=== PATIENT | female | born 1930 | race Caucasian/White ===

== ENCOUNTER 2018-02-20 06:39 | Inpatient (IN) | payer MEDICARE ==
--- NOTE | 2018-02-20 07:27 | EDM.PDOC ---
ED HPI GENERAL MEDICAL PROBLEM - General Chief Complaint: Respiratory Problem Stated Complaint: short of breath Time Seen by Provider: 02/20/18 07:15 Source of Information: Reports: Patient, Family History Limitations: Reports: No Limitations - History of Present Illness INITIAL COMMENTS - FREE TEXT/NARRATIVE: Was on an [place] and was feeling well. On way home from [place] in the car she did have a sore throat. That progressed to a cough starting on Saturday. This morning she had a fever and the cough was worse and she states that her lungs feel full. Daughter noted that she was congested and cough was much worse during the night. She denies any chest pain but does admit to feeling SOB. Did have pneumonia at Easter time. Onset: Gradual Location: Reports: Chest - Related Data Allergies Allergy/AdvReac Type Severity Reaction Status Date / Time escitalopram [From Lexapro] Allergy Cannot Verified 02/20/18 07:14 Remember vancomycin Allergy Itching Verified 02/20/18 07:14 Home Meds: Home Meds Aspirin 81 mg PO DAILY 09/12/16 [History] Clopidogrel [Plavix] 75 mg PO DAILY 09/12/16 [History] Ferrous Sulfate [Iron] 325 mg PO DAILY 09/12/16 [History] Furosemide [Lasix] 20 mg PO DAILY PRN 09/12/16 [History] Multivitamin [Multivitamins] 1 each PO DAILY 09/12/16 [History] Saxagliptin HCl [Onglyza] 2.5 mg PO BID 09/12/16 [History] Sennosides [Senna] 8.6 mg PO BID 09/12/16 [History] Sertraline [Zoloft] 50 mg PO DAILY 09/12/16 [History] Vit C/E/Zn/Coppr/Lutein/Zeaxan [Preservision Areds 2 Softgel] 1 tab PO BID 09/12 [History] amLODIPine Besylate [Amlodipine Besylate] 10 mg PO DAILY 09/12/16 [History] atorvaSTATin Calcium [Atorvastatin Calcium] 10 mg PO DAILY 09/12/16 [History] hydrALAZINE HCl [Hydralazine HCl] 100 mg PO TID 09/12/16 [History] Albuterol Sulfate [Proair Respiclick] 90 mcg IH Q4H PRN 02/20/18 [History] Donepezil HCl 10 mg PO DAILY 02/20/18 [History] Doxazosin Mesylate [Cardura] 8 mg PO BID 02/20/18 [History] Insulin Detemir [Levemir] 5 unit SQ QPM 02/20/18 [History] Past Medical History HEENT History: Reports: Cataract, Macular Degeneration Cardiovascular History: Reports: Blood Clots/VTE/DVT, High Cholesterol, Hypertension, PVD, Stents Respiratory History: Reports: Pneumonia, Recurrent, SOB Gastrointestinal History: Reports: Chronic Constipation Genitourinary History: Reports: UTI, Recurrent [employer] History: Reports: Musculoskeletal History: Reports: Arthritis, Fracture Neurological History: Reports: Alzheimers Disease Psychiatric History: Reports: Alzheimers Disease, Depression Other Psychiatric History: daughter reports "memory issues" at times Endocrine/Metabolic History: Reports: Diabetes, Type II Hematologic History: Reports: Blood Transfusion(s) Immunologic History: Reports: Other (See Below) Other Immunologic History: recently chemo meds were dc'd Oncologic (Cancer) History: Reports: Colon - Past Surgical History HEENT Surgical History: Reports: Cataract Surgery Cardiovascular Surgical History: Reports: None Respiratory Surgical History: Reports: None GI Surgical History: Reports: Colon, Colonoscopy, Other (See Below) Other GI Surgeries/Procedures: colon cancer Endocrine Surgical History: Reports: None Musculoskeletal Surgical History: Reports: Hip Replacement, Knee Replacement, ORIF Dermatological Surgical History: Reports: Skin Graft Social & Family History - Tobacco Use Smoking Status *Q: Never Smoker ED ROS GENERAL - Review of Systems Review Of Systems: See Below Constitutional: Reports: Fever, Chills, Fatigue HEENT: Reports: No Symptoms Respiratory: Reports: Shortness of Breath, Cough, Sputum Cardiovascular: Denies: Chest Pain, Edema GI/Abdominal: Reports: No Symptoms : Reports: No Symptoms Musculoskeletal: Reports: No Symptoms Skin: Reports: No Symptoms Neurological: Reports: No Symptoms ED EXAM, GENERAL - Physical Exam Exam: See Below Exam Limited By: No Limitations General Appearance: Alert, WD/WN, Mild Distress Ears: Normal External Exam, Normal Canal, Normal TMs Nose: Normal Inspection Throat/Mouth: Normal Inspection, Normal Oropharynx, Normal Voice Head: Atraumatic, Normocephalic Neck: Normal Inspection, Supple, Non-Tender, Full Range of Motion Respiratory/Chest: Rhonchi, Wheezing Cardiovascular: Regular Rate, Rhythm, No Edema GI/Abdominal: Normal Bowel Sounds, Soft, Non-Tender, No Organomegaly Back Exam: Normal Inspection, Full Range of Motion Extremities: Normal Inspection, Normal Range of Motion, Non-Tender, No Pedal Edema, Normal Capillary Refill Neurological: Alert, Oriented Skin Exam: Warm, Dry, Intact Course - Vital Signs Last Recorded V/S: Last Vital Signs Temp 99.8 F 02/20/18 06:40 Pulse 77 02/20/18 06:40 Resp 20 02/20/18 06:40 BP 164/60 H 02/20/18 06:40 Pulse Ox 94 L 02/20/18 07:00 - Orders/Labs/Meds Orders: Active Orders 24 hr Category Date Time Status Oxygen Therapy, ED [RC] ASDIRECTED Care 02/20/18 06:45 Active CXR [Chest 2V] [CR] Stat Exams 02/20/18 06:59 Ordered C-REACTIVE PROTEIN [CHEM] Stat Lab 02/20/18 07:10 Received CBC WITH AUTO DIFF [HEME] Stat Lab 02/20/18 07:10 Received COMPREHENSIVE METABOLIC PN,CMP [CHEM] Stat Lab 02/20/18 07:10 Received CREATINE KINASE,CK [CHEM] Stat Lab 02/20/18 07:10 Received LACTATE DEHYDROGENASE,LDH [CHEM] Stat Lab 02/20/18 07:10 Received TROPONIN I [CHEM] Stat Lab 02/20/18 07:10 Received EKG 12 Lead [EK] Routine Ther 02/20/18 06:59 Ordered - Re-Assessments/Exams Free Text/Narrative Re-Assessment/Exam: 02/20/18 07:35In to discuss with family her CXR shows more of bronchitis at this time rather than pneumonia. Discussed that after she is hydrated that a pneumonia may show up. Due to the hypoxia on admit we will be admitting her for IV antibiotics and fluids with nebulizer treatments. She will be admitted acute to Dr. Cassidy. Case was discussed with Dr. Cassidy and he agrees with the admit. Departure - Departure Time of Disposition: 07:46 Disposition: Admitted As Inpatient 64 Condition: Fair Clinical Impression: Bronchitis, Hypoxia - Discharge Information Additional Instructions: see admit orders - Problem List & Annotations (1) Bronchitis SNOMED Code(s): 73356706 Code(s): J40 - BRONCHITIS, NOT SPECIFIED ACUTE OR CHRONIC Status: Acute Current Visit: Yes (2) Hypoxia SNOMED Code(s): 408537642 Code(s): R09.02 - HYPOXEMIA Status: Acute Priority: High Current Visit : Yes (3) Diabetes mellitus type 2, insulin dependent SNOMED Code(s): 010505426 Code(s): E11.9 - TYPE 2 DIABETES MELLITUS WITHOUT COMPLICATIONS; Z79.4 - SKILLED NURSING (CURRENT) USE OF INSULIN Status: Chronic Priority: Medium Current Visit: Yes - Problem List Review Problem List Initiated/Reviewed/Updated: Yes - My Orders Last 24 Hours: My Active Orders 02/20/18 06:45 Oxygen Therapy, ED [RC] ASDIRECTED 02/20/18 06:59 CXR [Chest 2V] [CR] Stat EKG 12 Lead [EK] Routine 02/20/18 07:10 C-REACTIVE PROTEIN [CHEM] Stat CBC WITH AUTO DIFF [HEME] Stat COMPREHENSIVE METABOLIC PN,CMP [CHEM] Stat CREATINE KINASE,CK [CHEM] Stat LACTATE DEHYDROGENASE,LDH [CHEM] Stat TROPONIN I [CHEM] Stat - Assessment/Plan Admission H&P: Please use this note as an admission H&P Last 24 Hours: My Active Orders 02/20/18 06:45 Oxygen Therapy, ED [RC] ASDIRECTED 02/20/18 06:59 CXR [Chest 2V] [CR] Stat EKG 12 Lead [EK] Routine 02/20/18 07:10 C-REACTIVE PROTEIN [CHEM] Stat CBC WITH AUTO DIFF [HEME] Stat COMPREHENSIVE METABOLIC PN,CMP [CHEM] Stat CREATINE KINASE,CK [CHEM] Stat LACTATE DEHYDROGENASE,LDH [CHEM] Stat TROPONIN I [CHEM] Stat
[2018-02-20 07:29] LABS: CHLORIDE,CL 108 mEq/L (98-106); SODIUM,NA 143 mEq/L (136-145)
[2018-02-20] MEDS ORDERED: Albuterol 8 GM Inhaler INH PRN (08:22)
[2018-02-20] MEDS ORDERED: Furosemide 20 MG Tab PO PRN (08:22)
[2018-02-20] MEDS ORDERED: SERTRALINE 50 MG PO SCH ×2 (08:22→20:00)
[2018-02-20] MEDS ORDERED: Magnesium Hydroxide 400 MG/5 ML Susp 30 ML Cup PO PRN (08:22)
[2018-02-20] MEDS: amLODIPine 10 MG Tab PO SCH (08:44)
[2018-02-20] MEDS: atorvaSTATin 10 MG Tab PO SCH (08:44)
[2018-02-20] MEDS: Clopidogrel 75 MG Tab PO SCH (08:45)
[2018-02-20] MEDS: cefTRIAXone 1 GM Vial IVPUSH SCH (08:45)
[2018-02-20] MEDS: Albuterol/Ipratropium 3.0-0.5 MG/3 ML Neb Soln NEB SCH ×4 (08:45→20:02)
[2018-02-20] MEDS: Aspirin 81 MG Tab.Chew PO SCH (08:45)
[2018-02-20] MEDS: Sodium Chloride 0.9% 1,000 ML IV SCH (09:30)
[2018-02-20] MEDS: Donepezil 5 MG Tab PO SCH (09:44)
[2018-02-20] MEDS: Enoxaparin 30 MG/0.3 ML Syringe SUBCUT SCH (09:44)
[2018-02-20] MEDS: Sennosides 8.6 MG Tab PO SCH ×2 (09:44→20:03)
[2018-02-20] MEDS: Ferrous Sulfate 324 MG Tab.EC PO SCH (09:44)
[2018-02-20] MEDS: Multivitamin Tab PO SCH ×2 (09:44→20:03)
[2018-02-20] MEDS: hydrALAZINE 25 MG Tab PO SCH ×3 (09:44→21:27)
[2018-02-20] MEDS: Doxazosin 2 MG Tab PO SCH ×2 (09:44→21:27)
[2018-02-20] MEDS: Acetaminophen 325 MG Tab PO PRN ×2 (12:23→20:02)
[2018-02-20] MEDS: Ibuprofen 200 MG Tab PO PRN (13:54)
[2018-02-20] MEDS ORDERED: Azithromycin 500 MG in Sodium Chloride 0.9% 250 ML IV SCH (16:30)
[2018-02-20] MEDS: Insulin Detemir 100 Units/ML 3 ML Pen SUBCUT SCH (21:44)
[2018-02-20] MEDS: ONGLYZA 2.5 MG PO SCH (21:45)
[2018-02-21] MEDS: Sodium Chloride 0.9% 1,000 ML IV SCH (06:18)
[2018-02-21] MEDS ORDERED: Albuterol/Ipratropium 3.0-0.5 MG/3 ML Neb Soln NEB PRN (07:06)
[2018-02-21] MEDS: cefTRIAXone 1 GM Vial IVPUSH SCH (07:30)
[2018-02-21] MEDS: Enoxaparin 30 MG/0.3 ML Syringe SUBCUT SCH (07:31)
[2018-02-21] MEDS: amLODIPine 10 MG Tab PO SCH (07:32)
[2018-02-21] MEDS: Albuterol/Ipratropium 3.0-0.5 MG/3 ML Neb Soln NEB SCH ×4 (07:32→19:54)
[2018-02-21] MEDS: Aspirin 81 MG Tab.Chew PO SCH (07:32)
[2018-02-21] MEDS: Doxazosin 2 MG Tab PO SCH ×2 (07:32→19:53)
[2018-02-21] MEDS: atorvaSTATin 10 MG Tab PO SCH (07:32)
[2018-02-21] MEDS: Clopidogrel 75 MG Tab PO SCH (07:32)
[2018-02-21] MEDS: Donepezil 5 MG Tab PO SCH (07:33)
[2018-02-21] MEDS: Sennosides 8.6 MG Tab PO SCH ×2 (07:33→19:52)
[2018-02-21] MEDS: hydrALAZINE 25 MG Tab PO SCH ×3 (07:33→19:53)
[2018-02-21] MEDS: Ferrous Sulfate 324 MG Tab.EC PO SCH (07:33)
[2018-02-21] MEDS: Multivitamin Tab PO SCH ×2 (07:33→19:54)
[2018-02-21] MEDS: ONGLYZA 2.5 MG PO SCH ×2 (07:35→19:54)
--- NOTE | 2018-02-21 08:16 | PCM.PN ---
- General Info Date of Service: 02/21/18 Admission Dx/Problem (Free Text): Bronchitis Hypoxia Type II DM Subjective Update: Krystal is an 87 year old female who was admitted to the hospital yesterday with bronchitis with hypoxia. She had reportedly been on an [employer] cruise and began feeling ill enroute home. She reports the two days prior to admission she began struggling more to breathe. She reports that she feels somewhat better today. She feels like she has more energy and is less short of breath. She reports she has less tightness in her chest and feels more "rattly now." She has a productive cough. She has been afebrile. VSS on 4 L O2 via NC. Functional Status: Reports: Pain Controlled, Tolerating Diet, Ambulating, Urinating. Denies: New Symptoms - Review of Systems General: Reports: Weakness, Fatigue. Denies: Fever, Chills HEENT: Reports: No Symptoms. Denies: Post Nasal Drip, Sinus Congestion, Rhinitis Pulmonary: Reports: Shortness of Breath, Cough, Sputum, Wheezing. Denies: Pleuritic Chest Pain, Hemoptysis Cardiovascular: Reports: Dyspnea on Exertion. Denies: Chest Pain, Palpitations , Orthopnea, Edema, Lightheadedness Gastrointestinal: Reports: No Symptoms. Denies: Abdominal Pain, Constipation, Decreased Appetite, Diarrhea, Nausea, Vomiting Genitourinary: Reports: No Symptoms. Denies: Dysuria, Frequency, Urgency Musculoskeletal: Reports: No Symptoms Skin: Reports: No Symptoms Neurological: Reports: Weakness. Denies: Confusion, Dizziness, Headache, Numbness, Tingling Psychiatric: Reports: No Symptoms - Patient Data Vitals - Most Recent: Last Vital Signs Temp 98.6 F 02/21/18 04:00 Pulse 61 02/21/18 04:00 Resp 20 02/21/18 04:00 BP 112/38 L 02/21/18 07:33 Pulse Ox 86 L 02/21/18 04:00 Weight - Most Recent: 162 lb I&O - Last 24 Hours: Intake & Output 02/20/18 02/21/18 02/21/18 22:59 06:59 14:59 Intake Total 2265 200 Output Total 200 0 Balance 2065 200 Lab Results Last 24 Hours: Laboratory Results - last 24 hr 02/20/18 02/20/18 02/20/18 Range/Units 11:34 16:15 17:25 WBC (5.0-10.0) 10^3/uL RBC (4.00-5.50) 10^6/uL Hgb (12.0-16.0) g/dL Hct (37.0-47.0) % MCV (82.0-94.0) fL MCH (27.0-32.0) pg MCHC (33.0-38.0) g/dL RDW Coeff of Charles (11.0-15.0) % Plt Count (150-400) 10^3/uL MPV fL Sodium (136-145) mEq/L Potassium (3.5-5.0) mEq/L Chloride (98-106) mEq/L Carbon Dioxide (21-32) mmol/L BUN (7-18) mg/dL Creatinine (0.6-1.0) mg/dL Est Cr Clr Drug Dosing mL/min Estimated GFR (MDRD) (>=60) mL/min Glucose (75-99) mg/dL POC Glucose 191 H 196 H (75-105) mg/dl Calcium (8.4-10.1) mg/dL C-Reactive Protein (0.2-0.8) mg/dL NT-Pro-B Natriuret Pep 1487 H (0-1000) pg/mL 02/20/18 02/21/18 02/21/18 Range/Units 20:58 07:00 07:00 WBC 4.7 L (5.0-10.0) 10^3/uL RBC 2.77 L (4.00-5.50) 10^6/uL Hgb 8.4 L (12.0-16.0) g/dL Hct 27.3 L (37.0-47.0) % MCV 98.6 H (82.0-94.0) fL MCH 30.3 (27.0-32.0) pg MCHC 30.8 L (33.0-38.0) g/dL RDW Coeff of Charles 15.7 H (11.0-15.0) % Plt Count 130 L (150-400) 10^3/uL MPV 9.1 fL Sodium 144 (136-145) mEq/L Potassium 3.7 (3.5-5.0) mEq/L Chloride 110 H (98-106) mEq/L Carbon Dioxide 25 (21-32) mmol/L BUN 19 H D (7-18) mg/dL Creatinine 1.5 H (0.6-1.0) mg/dL Est Cr Clr Drug Dosing 21.96 mL/min Estimated GFR (MDRD) 33 L (>=60) mL/min Glucose 105 H (75-99) mg/dL POC Glucose 265 H (75-105) mg/dl Calcium 8.0 L (8.4-10.1) mg/dL C-Reactive Protein 13.0 H (0.2-0.8) mg/dL NT-Pro-B Natriuret Pep (0-1000) pg/mL 02/21/18 Range/Units 07:41 WBC (5.0-10.0) 10^3/uL RBC (4.00-5.50) 10^6/uL Hgb (12.0-16.0) g/dL Hct (37.0-47.0) % MCV (82.0-94.0) fL MCH (27.0-32.0) pg MCHC (33.0-38.0) g/dL RDW Coeff of Charles (11.0-15.0) % Plt Count (150-400) 10^3/uL MPV fL Sodium (136-145) mEq/L Potassium (3.5-5.0) mEq/L Chloride (98-106) mEq/L Carbon Dioxide (21-32) mmol/L BUN (7-18) mg/dL Creatinine (0.6-1.0) mg/dL Est Cr Clr Drug Dosing mL/min Estimated GFR (MDRD) (>=60) mL/min Glucose (75-99) mg/dL POC Glucose 93 (75-105) mg/dl Calcium (8.4-10.1) mg/dL C-Reactive Protein (0.2-0.8) mg/dL NT-Pro-B Natriuret Pep (0-1000) pg/mL Med Orders - Current: Current Medications Acetaminophen (Tylenol) 650 mg PO Q4H PRN PRN Reason: Pain (Mild 1-3)/fever Last Admin: 02/20/18 20:02 Dose: 650 mg Albuterol (Ventolin Hfa) 0 gm INH Q4H PRN PRN Reason: Shortness of Breath Albuterol/Ipratropium (Duoneb 3.0-0.5 Mg/3 Ml) 3 ml NEB QIDRT [facility] Last Admin: 02/21/18 07:32 Dose: 3 ml Albuterol/Ipratropium (Duoneb 3.0-0.5 Mg/3 Ml) 3 ml NEB Q4H PRN PRN Reason: Dyspnea Amlodipine Besylate (Norvasc) 10 mg PO DAILY [facility] Last Admin: 02/21/18 07:32 Dose: 10 mg Aspirin (Aspirin) 81 mg PO DAILY [facility] Last Admin: 02/21/18 07:32 Dose: 81 mg Atorvastatin Calcium (Lipitor) 10 mg PO DAILY [facility] Last Admin: 02/21/18 07:32 Dose: 10 mg Ceftriaxone Sodium (Rocephin) 1 gm IVPUSH DAILY [facility] Last Admin: 02/21/18 07:30 Dose: 1 gm Clopidogrel Bisulfate (Plavix) 75 mg PO DAILY [facility] Last Admin: 02/21/18 07:32 Dose: 75 mg Donepezil HCl (Aricept) 10 mg PO DAILY [facility] Last Admin: 02/21/18 07:33 Dose: 10 mg Doxazosin Mesylate (Cardura) 8 mg PO BID [facility] Last Admin: 02/21/18 07:32 Dose: 8 mg Enoxaparin Sodium (Lovenox) 30 mg SUBCUT DAILY [facility] Last Admin: 02/21/18 07:31 Dose: 30 mg Ferrous Sulfate (Ferrous Sulfate) 324 mg PO DAILY [facility] Last Admin: 02/21/18 07:33 Dose: 324 mg Furosemide (Lasix) 20 mg PO DAILY PRN PRN Reason: Other Last Admin: 02/20/18 08:44 Dose: 20 mg Hydralazine HCl (Apresoline) 100 mg PO TID [facility] Last Admin: 02/21/18 07:33 Dose: 100 mg Sodium Chloride (Normal Saline) 1,000 mls @ 100 mls/hr IV ASDIRECTED [facility] Last Admin: 02/21/18 06:18 Dose: 100 mls/hr Azithromycin 500 mg/ Sodium (Chloride) 250 mls @ 250 mls/hr IV Q24H [facility] Last Admin: 02/20/18 17:19 Dose: 250 mls/hr Ibuprofen (Motrin) 400 mg PO Q8H PRN PRN Reason: Fever Last Admin: 02/20/18 13:54 Dose: 400 mg Insulin Detemir (Levemir) 5 unit SUBCUT QPM [facility] Last Admin: 02/20/18 21:44 Dose: 5 units Magnesium Hydroxide (Milk Of Magnesia) 30 ml PO BID PRN PRN Reason: Constipation Multivitamins/Minerals/Vitamin C (Tab-A-Anand) 1 tab PO BID [facility] Last Admin: 02/21/18 07:33 Dose: 1 tab Onglyza 2.5 Mg (Tablets Own Med) 0 mg PO BID [facility] Last Admin: 02/21/18 07:35 Dose: 2.5 mg Senna (Senna) 8.6 mg PO BID [facility] Last Admin: 02/21/18 07:33 Dose: 8.6 mg Sertraline HCl (Zoloft) 50 mg PO DAILY [facility] Discontinued Medications Sertraline 50 Mg (Tablets Own Med) 0 mg PO DAILY [facility] Last Admin: 02/20/18 17:21 Dose: Not Given Sertraline 50 Mg (Tablets Own Med) 0 mg PO BEDTIME [facility] Last Admin: 02/20/18 20:10 Dose: 50 mg - Exam Quality Assessment: Supplemental Oxygen, DVT Prophylaxis General: Alert, Oriented, Mild Distress Neck: Supple Lungs: Normal Respiratory Effort, Decreased Breath Sounds, Rhonchi, Wheezing Cardiovascular: Regular Rate, Regular Rhythm GI/Abdominal Exam: Normal Bowel Sounds, Soft, Non-Tender, No Organomegaly, No Distention, No Abnormal Bruit, No Mass, Pelvis Stable Back Exam: Normal Inspection, Full Range of Motion Extremities: Normal Inspection, Normal Range of Motion, Non-Tender, No Pedal Edema, Normal Capillary Refill Peripheral Pulses: 2+: Dorsalis Pedis (L), Dorsalis Pedis (R) Skin: Warm, Dry, Intact Neurological: No New Focal Deficit Psy/Mental Status: Alert, Normal Affect, Normal Mood - Problem List & Annotations (1) Pneumonia SNOMED Code(s): 826241870 Code(s): J18.9 - PNEUMONIA, UNSPECIFIED ORGANISM Status: Acute Current Visit: No Qualifiers: Pneumonia type: due to unspecified organism Laterality: right Lung location: lower lobe of lung Qualified Code(s): J18.9 - Pneumonia, unspecified organism (2) Hypoxia SNOMED Code(s): 999118929 Code(s): R09.02 - HYPOXEMIA Status: Acute Priority: High Current Visit : Yes (3) Diabetes mellitus type 2, insulin dependent SNOMED Code(s): 557648942 Code(s): E11.9 - TYPE 2 DIABETES MELLITUS WITHOUT COMPLICATIONS; Z79.4 - MCFP (CURRENT) USE OF INSULIN Status: Chronic Priority: Medium Current Visit: Yes (4) Acute renal insufficiency SNOMED Code(s): 315564975 Code(s): N28.9 - DISORDER OF KIDNEY AND URETER, UNSPECIFIED Status: Acute Current Visit: Yes (5) UTI (urinary tract infection) SNOMED Code(s): 45495695 Code(s): N39.0 - URINARY TRACT INFECTION, SITE NOT SPECIFIED Status: Acute Current Visit: Yes Qualifiers: Urinary tract infection type: site unspecified Hematuria presence: without hematuria Qualified Code(s): N39.0 - Urinary tract infection, site not specified - Problem List Review Problem List Initiated/Reviewed/Updated: Yes - My Orders Last 24 Hours: My Active Orders 02/21/18 07:50 Chest 2V [CR] Stat 02/21/18 07:52 INFLUENZA A+B AG SCREEN [RM] Stat - Plan Plan:: Pneumonia with hypoxia Influenza negative. Repeat CXR reveals increasing pleural effusion, but improvement in right atelectasis. WBC down to 4.7 today from 10.2 on admission. CRP up to 13 from 4.2. Continue IV antibiotics and nebs. One time dose 40 mg IV lasix. Preliminary blood cultures negative. Type II DM Blood sugars adequately controlled on home dosing of Levemir. Continue QID AC. Encourage ambulation/activity. UTI Preliminary UC shows gram negative rods. Awaiting final culture and sensitivities. On IV antibiotics. Acute Renal Insufficiency Creatinine 1.5 today. Up from 1.0 yesterday. Will monitor.
[2018-02-21] MEDS: Sertraline 25 MG Tab PO SCH (08:17)
[2018-02-21] MEDS ORDERED: Furosemide 40 MG/4 ML VIAL IVPUSH ONE (09:46)
[2018-02-21] MEDS: Acetaminophen 325 MG Tab PO PRN ×2 (15:57→19:53)
[2018-02-21] MEDS ORDERED: Azithromycin 500 MG in Sodium Chloride 0.9% 250 ML IV SCH (16:00)
[2018-02-21] MEDS: Ibuprofen 200 MG Tab PO PRN (17:30)
[2018-02-21] MEDS: Insulin Detemir 100 Units/ML 3 ML Pen SUBCUT SCH (19:54)
[2018-02-22] MEDS: Aspirin 81 MG Tab.Chew PO SCH (08:01)
[2018-02-22] MEDS: cefTRIAXone 1 GM Vial IVPUSH SCH (08:01)
[2018-02-22] MEDS: Sertraline 25 MG Tab PO SCH (08:02)
[2018-02-22] MEDS: Donepezil 5 MG Tab PO SCH (08:02)
[2018-02-22] MEDS: Multivitamin Tab PO SCH ×2 (08:02→20:30)
[2018-02-22] MEDS: Enoxaparin 30 MG/0.3 ML Syringe SUBCUT SCH (08:02)
[2018-02-22] MEDS: Sennosides 8.6 MG Tab PO SCH ×2 (08:02→20:30)
[2018-02-22] MEDS: atorvaSTATin 10 MG Tab PO SCH (08:02)
[2018-02-22] MEDS: Ferrous Sulfate 324 MG Tab.EC PO SCH (08:02)
[2018-02-22] MEDS: Clopidogrel 75 MG Tab PO SCH (08:02)
[2018-02-22] MEDS: Albuterol/Ipratropium 3.0-0.5 MG/3 ML Neb Soln NEB SCH ×4 (08:03→20:30)
[2018-02-22] MEDS: ONGLYZA 2.5 MG PO SCH ×2 (08:03→20:33)
--- NOTE | 2018-02-22 09:20 | PCM.PN ---
- General Info Date of Service: 02/22/18 Admission Dx/Problem (Free Text): Bronchitis Hypoxia Type II DM UTI Subjective Update: Patient reports she is feeling better this morning. Does continue to have shortness of breath. She reports she hasn't been able to sleep much given her consistent cough. She reports she continues to feel weak and fatigued. Has been afebrile. VSS on 2 L O2 via NC. Functional Status: Reports: Pain Controlled, Tolerating Diet, Ambulating, Urinating. Denies: New Symptoms - Review of Systems General: Reports: Weakness, Fatigue. Denies: Fever, Chills, Appetite HEENT: Reports: No Symptoms Pulmonary: Reports: Shortness of Breath, Cough, Sputum, Wheezing Cardiovascular: Reports: Dyspnea on Exertion. Denies: Chest Pain, Palpitations , Edema, Lightheadedness Gastrointestinal: Reports: Decreased Appetite, Diarrhea. Denies: Abdominal Pain , Nausea, Vomiting Genitourinary: Reports: No Symptoms Musculoskeletal: Reports: No Symptoms Skin: Reports: No Symptoms Neurological: Reports: Weakness. Denies: Confusion, Dizziness, Pre-Existing Deficit Psychiatric: Reports: No Symptoms - Patient Data Vitals - Most Recent: Last Vital Signs Temp 98.6 F 02/22/18 07:54 Pulse 61 02/22/18 07:54 Resp 18 02/22/18 07:54 BP 122/40 L 02/22/18 07:54 Pulse Ox 94 L 02/22/18 07:54 Weight - Most Recent: 161 lb 3.2 oz I&O - Last 24 Hours: Intake & Output 02/21/18 02/22/18 02/22/18 22:59 06:59 14:59 Intake Total 1365 0 Output Total 250 400 Balance 1115 -400 Lab Results Last 24 Hours: Laboratory Results - last 24 hr 02/21/18 02/21/18 02/21/18 Range/Units 11:46 17:25 20:07 WBC (5.0-10.0) 10^3/uL RBC (4.00-5.50) 10^6/uL Hgb (12.0-16.0) g/dL Hct (37.0-47.0) % MCV (82.0-94.0) fL MCH (27.0-32.0) pg MCHC (33.0-38.0) g/dL RDW Coeff of Charles (11.0-15.0) % Plt Count (150-400) 10^3/uL MPV fL Sodium (136-145) mEq/L Potassium (3.5-5.0) mEq/L Chloride (98-106) mEq/L Carbon Dioxide (21-32) mmol/L BUN (7-18) mg/dL Creatinine (0.6-1.0) mg/dL Est Cr Clr Drug Dosing mL/min Estimated GFR (MDRD) (>=60) mL/min Glucose (75-99) mg/dL POC Glucose 181 H 121 H 168 H (75-105) mg/dl Calcium (8.4-10.1) mg/dL C-Reactive Protein (0.2-0.8) mg/dL 02/22/18 02/22/18 02/22/18 Range/Units 07:00 07:45 07:59 WBC 4.5 L (5.0-10.0) 10^3/uL RBC 2.85 L (4.00-5.50) 10^6/uL Hgb 8.7 L (12.0-16.0) g/dL Hct 27.6 L (37.0-47.0) % MCV 96.8 H (82.0-94.0) fL MCH 30.5 (27.0-32.0) pg MCHC 31.5 L (33.0-38.0) g/dL RDW Coeff of Charles 15.6 H (11.0-15.0) % Plt Count 148 L (150-400) 10^3/uL MPV 10.0 fL Sodium 142 (136-145) mEq/L Potassium 3.7 (3.5-5.0) mEq/L Chloride 108 H (98-106) mEq/L Carbon Dioxide 23 (21-32) mmol/L BUN 22 H (7-18) mg/dL Creatinine 1.3 H (0.6-1.0) mg/dL Est Cr Clr Drug Dosing 25.33 mL/min Estimated GFR (MDRD) 39 L (>=60) mL/min Glucose 107 H (75-99) mg/dL POC Glucose 98 (75-105) mg/dl Calcium 8.1 L (8.4-10.1) mg/dL C-Reactive Protein 12.0 H (0.2-0.8) mg/dL [place] Results Last 24 Hours: Microbiology 02/20/18 09:39 Urine Culture - Final Urine, Voided Citrobacter Farmeri 02/20/18 14:15 Aerobic Blood Culture - Preliminary Blood - Venous - Lab Draw NO GROWTH AFTER 1 DAY Anaerobic Blood Culture - Preliminary NO GROWTH AFTER 1 DAY 02/20/18 14:05 Aerobic Blood Culture - Preliminary Blood - Venous NO GROWTH AFTER 1 DAY Anaerobic Blood Culture - Preliminary NO GROWTH AFTER 1 DAY 02/21/18 08:05 Influenza Type A Antigen Screen - Final Nasal Aspirate, Unspecified NEGATIVE INFLUENZA A VIRUS AG Influenza Type B Antigen Screen - Final NEGATIVE INFLUENZA B VIRUS AG Med Orders - Current: Current Medications Acetaminophen (Tylenol) 650 mg PO Q4H PRN PRN Reason: Pain (Mild 1-3)/fever Last Admin: 02/21/18 19:53 Dose: 650 mg Albuterol (Ventolin Hfa) 0 gm INH Q4H PRN PRN Reason: Shortness of Breath Albuterol/Ipratropium (Duoneb 3.0-0.5 Mg/3 Ml) 3 ml NEB QIDRT [facility] Last Admin: 02/22/18 08:03 Dose: 3 ml Albuterol/Ipratropium (Duoneb 3.0-0.5 Mg/3 Ml) 3 ml NEB Q4H PRN PRN Reason: Dyspnea Last Admin: 02/21/18 18:34 Dose: 3 ml Amlodipine Besylate (Norvasc) 10 mg PO DAILY [facility] Last Admin: 02/21/18 07:32 Dose: 10 mg Aspirin (Aspirin) 81 mg PO DAILY [facility] Last Admin: 02/22/18 08:01 Dose: 81 mg Atorvastatin Calcium (Lipitor) 10 mg PO DAILY [facility] Last Admin: 02/22/18 08:02 Dose: 10 mg Ceftriaxone Sodium (Rocephin) 1 gm IVPUSH DAILY [facility] Last Admin: 02/22/18 08:01 Dose: 1 gm Clopidogrel Bisulfate (Plavix) 75 mg PO DAILY [facility] Last Admin: 02/22/18 08:02 Dose: 75 mg Donepezil HCl (Aricept) 10 mg PO DAILY [facility] Last Admin: 02/22/18 08:02 Dose: 10 mg Doxazosin Mesylate (Cardura) 8 mg PO BID [facility] Last Admin: 02/21/18 19:53 Dose: 8 mg Enoxaparin Sodium (Lovenox) 30 mg SUBCUT DAILY [facility] Last Admin: 02/22/18 08:02 Dose: 30 mg Ferrous Sulfate (Ferrous Sulfate) 324 mg PO DAILY [facility] Last Admin: 02/22/18 08:02 Dose: 324 mg Furosemide (Lasix) 20 mg PO DAILY PRN PRN Reason: Other Last Admin: 02/20/18 08:44 Dose: 20 mg Hydralazine HCl (Apresoline) 100 mg PO TID [facility] Last Admin: 02/21/18 19:53 Dose: 100 mg Azithromycin 500 mg/ Sodium (Chloride) 250 mls @ 250 mls/hr IV DAILY@1600 [facility] Last Admin: 02/21/18 15:53 Dose: 250 mls/hr Ibuprofen (Motrin) 400 mg PO Q8H PRN PRN Reason: Fever Last Admin: 02/21/18 17:30 Dose: 400 mg Insulin Detemir (Levemir) 5 unit SUBCUT QPM [facility] Last Admin: 02/21/18 19:54 Dose: 5 units Magnesium Hydroxide (Milk Of Magnesia) 30 ml PO BID PRN PRN Reason: Constipation Multivitamins/Minerals/Vitamin C (Tab-A-Anand) 1 tab PO BID [facility] Last Admin: 02/22/18 08:02 Dose: 1 tab Onglyza 2.5 Mg (Tablets Own Med) 0 mg PO BID [facility] Last Admin: 02/22/18 08:03 Dose: 2.5 mg Senna (Senna) 8.6 mg PO BID [facility] Last Admin: 02/22/18 08:02 Dose: 8.6 mg Sertraline HCl (Zoloft) 50 mg PO DAILY [facility] Last Admin: 02/22/18 08:02 Dose: 50 mg Discontinued Medications Furosemide (Lasix) 40 mg IVPUSH ONETIME ONE Stop: 02/21/18 09:47 Last Admin: 02/21/18 10:17 Dose: 40 mg Sodium Chloride (Normal Saline) 1,000 mls @ 100 mls/hr IV ASDIRECTED [facility] Last Admin: 02/21/18 06:18 Dose: 100 mls/hr Azithromycin 500 mg/ Sodium (Chloride) 250 mls @ 250 mls/hr IV Q24H [facility] Last Admin: 06/07/18 17:19 Dose: 250 mls/hr Sertraline 50 Mg (Tablets Own Med) 0 mg PO DAILY [facility] Last Admin: 02/20/18 17:21 Dose: Not Given Sertraline 50 Mg (Tablets Own Med) 0 mg PO BEDTIME [facility] Last Admin: 02/20/18 20:10 Dose: 50 mg - Exam Quality Assessment: Supplemental Oxygen, DVT Prophylaxis General: Alert, Oriented, No Acute Distress Neck: Supple Lungs: Normal Respiratory Effort, Rhonchi, Wheezing Cardiovascular: Regular Rate, Regular Rhythm GI/Abdominal Exam: Normal Bowel Sounds, Soft, Non-Tender, No Organomegaly, No Distention, No Abnormal Bruit, No Mass, Pelvis Stable Extremities: Normal Inspection, Normal Range of Motion, Non-Tender, No Pedal Edema, Normal Capillary Refill Skin: Warm, Dry, Intact Neurological: No New Focal Deficit Psy/Mental Status: Alert, Normal Affect, Normal Mood - Problem List & Annotations (1) Pneumonia SNOMED Code(s): 994112790 Code(s): J18.9 - PNEUMONIA, UNSPECIFIED ORGANISM Status: Acute Current Visit: No Qualifiers: Pneumonia type: due to unspecified organism Laterality: right Lung location: lower lobe of lung Qualified Code(s): J18.1 - Lobar pneumonia, unspecified organism (2) Hypoxia SNOMED Code(s): 367040771 Code(s): R09.02 - HYPOXEMIA Status: Acute Priority: High Current Visit : Yes (3) Diabetes mellitus type 2, insulin dependent SNOMED Code(s): 218939369 Code(s): E11.9 - TYPE 2 DIABETES MELLITUS WITHOUT COMPLICATIONS; Z79.4 - (CURRENT) USE OF INSULIN Status: Chronic Priority: Medium Current Visit: Yes (4) Acute renal insufficiency SNOMED Code(s): 693665531 Code(s): N28.9 - DISORDER OF KIDNEY AND URETER, UNSPECIFIED Status: Acute Current Visit: Yes (5) UTI (urinary tract infection) SNOMED Code(s): 16627516 Code(s): N39.0 - URINARY TRACT INFECTION, SITE NOT SPECIFIED Status: Acute Current Visit: Yes Qualifiers: Urinary tract infection type: site unspecified Hematuria presence: without hematuria Qualified Code(s): N39.0 - Urinary tract infection, site not specified - Problem List Review Problem List Initiated/Reviewed/Updated: Yes - Plan Plan:: Pneumonia with hypoxia Influenza negative. Repeat CXR 02/21/2018 revealed increasing pleural effusion, but improvement in right atelectasis. WBC down to 4.5 today from 10.2 on admission. CRP 12 today, down from 13 yesterday. Will switch to IV Vanco and Zosyn, given resistant urine culture to rocephin. Will also add Solumedrol 62.5 BID. Cough medicine PRN. One time dose 40 mg IV lasix given yesterday. Home dose of 20 mg Lasix PRN. Will switch this to scheduled daily to see if this improves patient's breathing. ProBNP elevated at 1487. Blood cultures remain negative to date. D-dimer elevated to 2.33. Will get Chest CTA to r/o PE given recent travel and continued SOB. Type II DM Blood sugars adequately controlled on home dosing of Levemir. Continue QID AC. Encourage ambulation/activity. UTI Final UC shows citrobacter farmeri with resistance to Rocephin. Will switch antibiotic to Zosyn given sensitivity. Acute Renal Insufficiency Creatinine improved to 1.3 today. Was 1.5 yesterday. Will monitor.
[2018-02-22] MEDS ORDERED: methylPREDNISolone Sodium Succinate 125 MG/2 ML SDV IVPUSH SCH (09:30)
[2018-02-22] MEDS ORDERED: methylPREDNISolone Sodium Succinate 125 MG/2 ML SDV ONE (11:31)
[2018-02-22] MEDS: Piperacillin/Tazobactam 3.375 GM in Sodium Chloride 0.9% 50 ML IV SCH ×3 (12:07→22:06)
[2018-02-22] MEDS: hydrALAZINE 25 MG Tab PO SCH ×3 (12:08→20:30)
[2018-02-22] MEDS: Doxazosin 2 MG Tab PO SCH ×2 (12:08→20:30)
[2018-02-22] MEDS: amLODIPine 10 MG Tab PO SCH (12:08)
[2018-02-22] MEDS ORDERED: Codeine/Promethazine 10-6.25 MG/5 ML Syrup 5 ML UD Cup PO PRN (13:22)
[2018-02-22] MEDS ORDERED: Iopamidol 755 Mg/ML 100 ML Bottle IVPUSH ONE (13:24)
[2018-02-22] MEDS ORDERED: Furosemide 20 MG Tab PO SCH (13:30)
[2018-02-22] MEDS: Insulin Aspart 100 Units/ML 3 ML Pen SUBCUT SCH (17:23)
[2018-02-22] MEDS: methylPREDNISolone Sodium Succinate 125 MG/2 ML SDV IVPUSH SCH (20:30)
[2018-02-22] MEDS: Insulin Detemir 100 Units/ML 3 ML Pen SUBCUT SCH (20:33)
[2018-02-23] MEDS: Piperacillin/Tazobactam 3.375 GM in Sodium Chloride 0.9% 50 ML IV SCH ×4 (04:40→23:13)
[2018-02-23] MEDS: Enoxaparin 30 MG/0.3 ML Syringe SUBCUT SCH (08:07)
[2018-02-23] MEDS: Albuterol/Ipratropium 3.0-0.5 MG/3 ML Neb Soln NEB SCH ×4 (08:07→20:55)
[2018-02-23] MEDS: hydrALAZINE 25 MG Tab PO SCH ×3 (08:07→20:54)
[2018-02-23] MEDS: methylPREDNISolone Sodium Succinate 125 MG/2 ML SDV IVPUSH SCH ×2 (08:08→20:56)
[2018-02-23] MEDS: ONGLYZA 2.5 MG PO SCH ×2 (08:08→20:55)
[2018-02-23] MEDS: Furosemide 20 MG/2 ML VIAL IVPUSH SCH (08:08)
[2018-02-23] MEDS: Doxazosin 2 MG Tab PO SCH ×2 (08:09→23:13)
[2018-02-23] MEDS: Insulin Aspart 100 Units/ML 3 ML Pen SUBCUT SCH ×3 (08:09→18:28)
[2018-02-23] MEDS: Ferrous Sulfate 324 MG Tab.EC PO SCH (08:09)
[2018-02-23] MEDS: Multivitamin Tab PO SCH ×2 (08:09→20:56)
[2018-02-23] MEDS: Donepezil 5 MG Tab PO SCH (08:09)
[2018-02-23] MEDS: Clopidogrel 75 MG Tab PO SCH (08:09)
[2018-02-23] MEDS: Sertraline 25 MG Tab PO SCH (08:10)
[2018-02-23] MEDS: amLODIPine 10 MG Tab PO SCH (08:10)
[2018-02-23] MEDS: Aspirin 81 MG Tab.Chew PO SCH (08:10)
[2018-02-23] MEDS: atorvaSTATin 10 MG Tab PO SCH (08:10)
[2018-02-23] MEDS: Sennosides 8.6 MG Tab PO SCH ×2 (08:10→20:56)
--- NOTE | 2018-02-23 14:53 | PCM.PN ---
- General Info Date of Service: 02/23/18 Admission Dx/Problem (Free Text): Bronchitis Hypoxia Type II DM UTI Subjective Update: Patient reports she is feeling much better today. She feels like her breathing has improved. She does still have some shortness of breath at rest, but she feels like it has improved. She reports she slept well last night. Coughing has lessened and become nonproductive. She has been using cough drops. She has been afebrile. VSS on 2 L O2. Labs stable. Hgb 9.5 today. Reports her appetite has improved. She also reports she feels like she has more energy. Functional Status: Reports: Pain Controlled, Tolerating Diet, Ambulating, Urinating. Denies: New Symptoms - Review of Systems General: Reports: Weakness, Fatigue. Denies: Fever, Chills HEENT: Reports: No Symptoms Pulmonary: Reports: Shortness of Breath, Cough, Wheezing. Denies: Pleuritic Chest Pain, Sputum, Hemoptysis Cardiovascular: Reports: Dyspnea on Exertion. Denies: Chest Pain, Orthopnea, Edema, Lightheadedness Gastrointestinal: Reports: No Symptoms. Denies: Abdominal Pain, Constipation, Decreased Appetite, Diarrhea, Nausea, Vomiting Genitourinary: Reports: No Symptoms Musculoskeletal: Reports: No Symptoms Skin: Reports: No Symptoms Neurological: Reports: No Symptoms Psychiatric: Reports: No Symptoms - Patient Data Vitals - Most Recent: Last Vital Signs Temp 97.5 F 02/23/18 08:00 Pulse 73 02/23/18 08:00 Resp 18 02/23/18 08:00 BP 142/41 H 02/23/18 14:18 Pulse Ox 95 02/23/18 08:00 Weight - Most Recent: 161 lb 6.4 oz I&O - Last 24 Hours: Intake & Output 02/22/18 02/23/18 02/23/18 22:59 06:59 14:59 Intake Total 600 600 Output Total 700 400 Balance -100 200 Lab Results Last 24 Hours: Laboratory Results - last 24 hr 02/22/18 02/22/18 02/23/18 Range/Units 17:06 20:29 07:05 WBC 4.2 L (5.0-10.0) 10^3/uL RBC 3.17 L (4.00-5.50) 10^6/uL Hgb 9.5 L (12.0-16.0) g/dL Hct 30.1 L (37.0-47.0) % MCV 95.0 H (82.0-94.0) fL MCH 30.0 (27.0-32.0) pg MCHC 31.6 L (33.0-38.0) g/dL RDW Coeff of Charles 15.4 H (11.0-15.0) % Plt Count 178 (150-400) 10^3/uL MPV 9.9 fL Sodium (136-145) mEq/L Potassium (3.5-5.0) mEq/L Chloride (98-106) mEq/L Carbon Dioxide (21-32) mmol/L BUN (7-18) mg/dL Creatinine (0.6-1.0) mg/dL Est Cr Clr Drug Dosing mL/min Estimated GFR (MDRD) (>=60) mL/min Glucose (75-99) mg/dL POC Glucose 245 H 320 H (75-105) mg/dl Calcium (8.4-10.1) mg/dL C-Reactive Protein (0.2-0.8) mg/dL 02/23/18 02/23/18 Range/Units 07:05 08:02 WBC (5.0-10.0) 10^3/uL RBC (4.00-5.50) 10^6/uL Hgb (12.0-16.0) g/dL Hct (37.0-47.0) % MCV (82.0-94.0) fL MCH (27.0-32.0) pg MCHC (33.0-38.0) g/dL RDW Coeff of Charles (11.0-15.0) % Plt Count (150-400) 10^3/uL MPV fL Sodium 139 (136-145) mEq/L Potassium 4.6 D (3.5-5.0) mEq/L Chloride 106 (98-106) mEq/L Carbon Dioxide 22 (21-32) mmol/L BUN 29 H (7-18) mg/dL Creatinine 1.5 H (0.6-1.0) mg/dL Est Cr Clr Drug Dosing 21.96 mL/min Estimated GFR (MDRD) 33 L (>=60) mL/min Glucose 291 H D (75-99) mg/dL POC Glucose 240 H (75-105) mg/dl Calcium 8.7 (8.4-10.1) mg/dL C-Reactive Protein 7.8 H (0.2-0.8) mg/dL [place] Results Last 24 Hours: Microbiology 02/20/18 14:15 Aerobic Blood Culture - Preliminary Blood - Venous - Lab Draw NO GROWTH AFTER 3 DAYS Anaerobic Blood Culture - Preliminary NO GROWTH AFTER 3 DAYS 02/20/18 14:05 Aerobic Blood Culture - Preliminary Blood - Venous NO GROWTH AFTER 3 DAYS Anaerobic Blood Culture - Preliminary NO GROWTH AFTER 3 DAYS Med Orders - Current: Current Medications Acetaminophen (Tylenol) 650 mg PO Q4H PRN PRN Reason: Pain (Mild 1-3)/fever Last Admin: 02/21/18 19:53 Dose: 650 mg Albuterol (Ventolin Hfa) 0 gm INH Q4H PRN PRN Reason: Shortness of Breath Albuterol/Ipratropium (Duoneb 3.0-0.5 Mg/3 Ml) 3 ml NEB QIDRT [facility] Last Admin: 02/23/18 11:47 Dose: 3 ml Albuterol/Ipratropium (Duoneb 3.0-0.5 Mg/3 Ml) 3 ml NEB Q4H PRN PRN Reason: Dyspnea Last Admin: 02/21/18 18:34 Dose: 3 ml Amlodipine Besylate (Norvasc) 10 mg PO DAILY [facility] Last Admin: 02/23/18 08:10 Dose: 10 mg Aspirin (Aspirin) 81 mg PO DAILY [facility] Last Admin: 02/23/18 08:10 Dose: 81 mg Atorvastatin Calcium (Lipitor) 10 mg PO DAILY [facility] Last Admin: 02/23/18 08:10 Dose: 10 mg Clopidogrel Bisulfate (Plavix) 75 mg PO DAILY [facility] Last Admin: 02/23/18 08:09 Dose: 75 mg Donepezil HCl (Aricept) 10 mg PO DAILY [facility] Last Admin: 02/23/18 08:09 Dose: 10 mg Doxazosin Mesylate (Cardura) 8 mg PO BID [facility] Last Admin: 02/23/18 08:09 Dose: 8 mg Enoxaparin Sodium (Lovenox) 30 mg SUBCUT DAILY [facility] Last Admin: 02/23/18 08:07 Dose: 30 mg Ferrous Sulfate (Ferrous Sulfate) 324 mg PO DAILY [facility] Last Admin: 02/23/18 08:09 Dose: 324 mg Furosemide (Lasix) 20 mg IVPUSH Q24H [facility] Last Admin: 02/23/18 08:08 Dose: 20 mg Hydralazine HCl (Apresoline) 100 mg PO TID [facility] Last Admin: 02/23/18 14:18 Dose: 100 mg Piperacillin Sod/Tazobactam (Sod 3.375 gm/ Sodium Chloride) 50 mls @ 100 mls/ hr IV Q6H [facility] Last Admin: 02/23/18 11:15 Dose: 100 mls/hr Ibuprofen (Motrin) 400 mg PO Q8H PRN PRN Reason: Fever Last Admin: 02/21/18 17:30 Dose: 400 mg Insulin Aspart (Novolog) 0 - 10 unit SUBCUT TIDMEALS [facility]; Protocol Last Admin: 02/23/18 11:47 Dose: 4 units Insulin Detemir (Levemir) 5 unit SUBCUT QPM [facility] Last Admin: 02/22/18 20:33 Dose: 5 units Magnesium Hydroxide (Milk Of Magnesia) 30 ml PO BID PRN PRN Reason: Constipation Methylprednisolone Sodium Succinate (Solu-Medrol) 62.5 mg IVPUSH Q12H [facility] Last Admin: 02/23/18 08:08 Dose: 62.5 mg Multivitamins/Minerals/Vitamin C (Tab-A-Anand) 1 tab PO BID [facility] Last Admin: 02/23/18 08:09 Dose: 1 tab Onglyza 2.5 Mg (Tablets Own Med) 0 mg PO BID [facility] Last Admin: 02/23/18 08:08 Dose: 1 mg Promethazine HCl/Codeine (Phenergan With Codeine) 5 - 10 ml PO Q6H PRN PRN Reason: Cough Senna (Senna) 8.6 mg PO BID [facility] Last Admin: 02/23/18 08:10 Dose: Not Given Sertraline HCl (Zoloft) 50 mg PO DAILY [facility] Last Admin: 02/23/18 08:10 Dose: 50 mg Discontinued Medications Ceftriaxone Sodium (Rocephin) 1 gm IVPUSH DAILY [facility] Last Admin: 02/22/18 08:01 Dose: 1 gm Furosemide (Lasix) 20 mg PO DAILY PRN PRN Reason: Other Last Admin: 02/20/18 08:44 Dose: 20 mg Furosemide (Lasix) 40 mg IVPUSH ONETIME ONE Stop: 02/21/18 09:47 Last Admin: 02/21/18 10:17 Dose: 40 mg Furosemide (Lasix) 20 mg PO DAILY [facility] Last Admin: 02/22/18 14:16 Dose: 20 mg Sodium Chloride (Normal Saline) 1,000 mls @ 100 mls/hr IV ASDIRECTED [facility] Last Admin: 02/21/18 06:18 Dose: 100 mls/hr Azithromycin 500 mg/ Sodium (Chloride) 250 mls @ 250 mls/hr IV Q24H [facility] Last Admin: 02/20/18 17:19 Dose: 250 mls/hr Azithromycin 500 mg/ Sodium (Chloride) 250 mls @ 250 mls/hr IV DAILY@1600 [facility] Last Admin: 02/21/18 15:53 Dose: 250 mls/hr Vancomycin HCl 1 gm/ Sodium (Chloride) 250 mls @ 167 mls/hr IV Q24H [facility] Last Admin: 02/22/18 14:07 Dose: Not Given Vancomycin HCl 1 gm/ Sodium (Chloride) 250 mls @ 167 mls/hr IV Q24H [facility] Last Admin: 02/22/18 14:16 Dose: 167 mls/hr Iopamidol (Isovue-370 (76%)) 100 ml IVPUSH ONETIME ONE Stop: 02/22/18 13:25 Last Admin: 02/22/18 14:19 Dose: 100 ml Methylprednisolone Sodium Succinate (Solu-Medrol) 62.5 mg IVPUSH Q24H [facility] Last Admin: 02/22/18 11:35 Dose: 62.5 mg Methylprednisolone Sodium Succinate (Solu-Medrol) Confirm Administered Dose 125 mg .ROUTE .STK-MED ONE Stop: 02/22/18 11:32 Last Admin: 02/22/18 11:42 Dose: Not Given Sertraline 50 Mg (Tablets Own Med) 0 mg PO DAILY [facility] Last Admin: 02/20/18 17:21 Dose: Not Given Sertraline 50 Mg (Tablets Own Med) 0 mg PO BEDTIME [facility] Last Admin: 02/20/18 20:10 Dose: 50 mg Piperacillin Sod/Tazobactam Sod (Zosyn) Confirm Administered Dose 3.375 gm .ROUTE .STK-MED ONE Stop: 02/22/18 11:52 Last Admin: 02/22/18 12:02 Dose: Not Given Piperacillin Sod/Tazobactam Sod (Zosyn) Confirm Administered Dose 3.375 gm .ROUTE .STK-MED ONE Stop: 02/22/18 11:48 Last Admin: 02/22/18 12:01 Dose: Not Given Vancomycin HCl (Pharmacy To Dose - Vancomycin) 1 dose .XX ASDIRECTED [facility] - Exam Quality Assessment: Supplemental Oxygen, DVT Prophylaxis General: Alert, Oriented, No Acute Distress Neck: Supple Lungs: Normal Respiratory Effort, Decreased Breath Sounds (bases), Crackles ( bases) Cardiovascular: Regular Rate, Regular Rhythm, No Murmurs GI/Abdominal Exam: Normal Bowel Sounds, Soft, Non-Tender, No Organomegaly, No Distention, No Abnormal Bruit, No Mass, Pelvis Stable Back Exam: Normal Inspection, Full Range of Motion Extremities: Normal Inspection, Normal Range of Motion, Non-Tender, No Pedal Edema, Normal Capillary Refill Neurological: No New Focal Deficit Psy/Mental Status: Alert, Normal Affect, Normal Mood - Problem List & Annotations (1) Pneumonia SNOMED Code(s): 401424987 Code(s): J18.9 - PNEUMONIA, UNSPECIFIED ORGANISM Status: Acute Current Visit: No Qualifiers: Pneumonia type: due to unspecified organism Laterality: right Lung location: lower lobe of lung Qualified Code(s): J18.1 - Lobar pneumonia, unspecified organism (2) Hypoxia SNOMED Code(s): 544132021 Code(s): R09.02 - HYPOXEMIA Status: Acute Priority: High Current Visit : Yes (3) Diabetes mellitus type 2, insulin dependent SNOMED Code(s): 170638059 Code(s): E11.9 - TYPE 2 DIABETES MELLITUS WITHOUT COMPLICATIONS; Z79.4 - [employer] (CURRENT) USE OF INSULIN Status: Chronic Priority: Medium Current Visit: Yes (4) Acute renal insufficiency SNOMED Code(s): 943659122 Code(s): N28.9 - DISORDER OF KIDNEY AND URETER, UNSPECIFIED Status: Acute Current Visit: Yes (5) UTI (urinary tract infection) SNOMED Code(s): 58158290 Code(s): N39.0 - URINARY TRACT INFECTION, SITE NOT SPECIFIED Status: Acute Current Visit: Yes Qualifiers: Urinary tract infection type: site unspecified Hematuria presence: without hematuria Qualified Code(s): N39.0 - Urinary tract infection, site not specified (6) Pleural effusion SNOMED Code(s): 95413062 Code(s): J90 - PLEURAL EFFUSION, NOT ELSEWHERE CLASSIFIED Status: Acute Current Visit: Yes - Problem List Review Problem List Initiated/Reviewed/Updated: Yes - My Orders Last 24 Hours: My Active Orders 02/22/18 17:30 Insulin Aspart [NovoLOG] 0 - 10 unit SUBCUT TIDMEALS 02/22/18 20:00 methylPREDNISolone Sod Succ [Solu-MEDROL] 62.5 mg IVPUSH Q12H 02/23/18 08:00 Furosemide [Lasix] 20 mg IVPUSH Q24H - Plan Plan:: Pneumonia with hypoxia Influenza negative. Repeat CXR 02/21/2018 revealed increasing pleural effusion, but improvement in right atelectasis. WBC down to 4.2 today from 10.2 on admission. CRP trending down, 7.8 today. Continue IV antibiotics, steroids, and nebulizers. Cough medicine PRN. Blood cultures remain negative to date. D-Dimer elevated to 2.33. Chest CTA negative for PE or infiltrate. Wean O2 as able to keep O2 sats > 92%. Pleural Effusion ProBNP elevated at 1487. Chest CTA reveals bilateral moderate pleural effusions and basilar atelectasis as well as scattered areas of ground glass change seen throughout the lungs. Radiologist feels this is edema rather than infectious or inflammatory process. Will diuresis with lasix 20 mg IV. Daily weights. Monitor I & O. Creatinine 1.5 today. Type II DM Blood sugars adequately controlled on home dosing of Levemir. Continue QID AC. Encourage ambulation/activity. UTI Final UC shows citrobacter farmeri with resistance to Rocephin. Continue IV Zosyn. Acute Renal Insufficiency Creatinine 1.5. Continue to monitor. Daily labs. Hypertension Continue current home medications.
[2018-02-23] MEDS: Insulin Detemir 100 Units/ML 3 ML Pen SUBCUT SCH (20:58)
[2018-02-24] MEDS: Piperacillin/Tazobactam 3.375 GM in Sodium Chloride 0.9% 50 ML IV SCH ×4 (05:00→23:29)
[2018-02-24] MEDS: Aspirin 81 MG Tab.Chew PO SCH (07:57)
[2018-02-24] MEDS: Enoxaparin 30 MG/0.3 ML Syringe SUBCUT SCH (07:57)
[2018-02-24] MEDS: hydrALAZINE 25 MG Tab PO SCH ×3 (07:57→19:56)
[2018-02-24] MEDS: atorvaSTATin 10 MG Tab PO SCH (07:57)
[2018-02-24] MEDS: Clopidogrel 75 MG Tab PO SCH (07:58)
[2018-02-24] MEDS: Doxazosin 2 MG Tab PO SCH ×2 (07:58→19:56)
[2018-02-24] MEDS: methylPREDNISolone Sodium Succinate 125 MG/2 ML SDV IVPUSH SCH ×2 (07:58→20:05)
[2018-02-24] MEDS: amLODIPine 10 MG Tab PO SCH (07:58)
[2018-02-24] MEDS: Sertraline 25 MG Tab PO SCH (07:58)
[2018-02-24] MEDS: Donepezil 5 MG Tab PO SCH (07:58)
[2018-02-24] MEDS: Multivitamin Tab PO SCH ×2 (07:58→20:05)
[2018-02-24] MEDS: Ferrous Sulfate 324 MG Tab.EC PO SCH (07:58)
[2018-02-24] MEDS: Albuterol/Ipratropium 3.0-0.5 MG/3 ML Neb Soln NEB SCH ×4 (07:58→19:56)
[2018-02-24] MEDS: Furosemide 20 MG/2 ML VIAL IVPUSH SCH (07:58)
[2018-02-24] MEDS: Insulin Aspart 100 Units/ML 3 ML Pen SUBCUT SCH ×3 (07:59→17:10)
[2018-02-24] MEDS: ONGLYZA 2.5 MG PO SCH ×2 (07:59→19:57)
[2018-02-24] MEDS: Sennosides 8.6 MG Tab PO SCH ×2 (08:09→20:05)
--- NOTE | 2018-02-24 16:08 | PCM.PN ---
- General Info Date of Service: 02/24/18 Admission Dx/Problem (Free Text): Bronchitis Hypoxia Type II DM UTI Functional Status: Reports: Pain Controlled, Tolerating Diet. Denies: Ambulating - Review of Systems General: Reports: Weakness, Fatigue, Malaise. Denies: Fever HEENT: Reports: Sinus Congestion, Rhinitis Pulmonary: Reports: Shortness of Breath, Cough, Wheezing. Denies: Sputum Cardiovascular: Denies: Chest Pain, Edema, Lightheadedness Gastrointestinal: Denies: Abdominal Pain, Nausea, Vomiting Genitourinary: Reports: No Symptoms Musculoskeletal: Reports: No Symptoms Skin: Reports: No Symptoms Neurological: Reports: No Symptoms - Patient Data Vitals - Most Recent: Last Vital Signs Temp 98.8 F 02/24/18 12:00 Pulse 76 02/24/18 12:00 Resp 20 02/24/18 12:00 BP 148/42 H 02/24/18 12:00 Pulse Ox 92 L 02/24/18 14:05 Weight - Most Recent: 161 lb 6.4 oz I&O - Last 24 Hours: Intake & Output 02/24/18 02/24/18 02/24/18 06:59 14:59 22:59 Intake Total 300 Output Total 300 Balance 0 Lab Results Last 24 Hours: Laboratory Results - last 24 hr 02/23/18 02/23/18 02/24/18 Range/Units 11:34 18:27 06:55 WBC 6.3 (5.0-10.0) 10^3/uL RBC 2.98 L (4.00-5.50) 10^6/uL Hgb 8.8 L (12.0-16.0) g/dL Hct 28.2 L (37.0-47.0) % MCV 94.6 H (82.0-94.0) fL MCH 29.5 (27.0-32.0) pg MCHC 31.2 L (33.0-38.0) g/dL RDW Coeff of Charles 15.4 H (11.0-15.0) % Plt Count 179 (150-400) 10^3/uL MPV 9.8 fL Sodium (136-145) mEq/L Potassium (3.5-5.0) mEq/L Chloride (98-106) mEq/L Carbon Dioxide (21-32) mmol/L BUN (7-18) mg/dL Creatinine (0.6-1.0) mg/dL Est Cr Clr Drug Dosing mL/min Estimated GFR (MDRD) (>=60) mL/min Glucose (75-99) mg/dL POC Glucose 220 H 327 H (75-105) mg/dl Calcium (8.4-10.1) mg/dL C-Reactive Protein (0.2-0.8) mg/dL 02/24/18 Range/Units 06:55 WBC (5.0-10.0) 10^3/uL RBC (4.00-5.50) 10^6/uL Hgb (12.0-16.0) g/dL Hct (37.0-47.0) % MCV (82.0-94.0) fL MCH (27.0-32.0) pg MCHC (33.0-38.0) g/dL RDW Coeff of Charles (11.0-15.0) % Plt Count (150-400) 10^3/uL MPV fL Sodium 139 (136-145) mEq/L Potassium 4.5 (3.5-5.0) mEq/L Chloride 106 (98-106) mEq/L Carbon Dioxide 23 (21-32) mmol/L BUN 42 H (7-18) mg/dL Creatinine 1.6 H (0.6-1.0) mg/dL Est Cr Clr Drug Dosing 20.58 mL/min Estimated GFR (MDRD) 30 L (>=60) mL/min Glucose 306 H* (75-99) mg/dL POC Glucose (75-105) mg/dl Calcium 8.4 (8.4-10.1) mg/dL C-Reactive Protein 4.5 H (0.2-0.8) mg/dL [place] Results Last 24 Hours: Microbiology 02/20/18 14:15 Aerobic Blood Culture - Preliminary Blood - Venous - Lab Draw NO GROWTH AFTER 4 DAYS Anaerobic Blood Culture - Preliminary NO GROWTH AFTER 4 DAYS 02/20/18 14:05 Aerobic Blood Culture - Preliminary Blood - Venous NO GROWTH AFTER 4 DAYS Anaerobic Blood Culture - Preliminary NO GROWTH AFTER 4 DAYS Med Orders - Current: Current Medications Acetaminophen (Tylenol) 650 mg PO Q4H PRN PRN Reason: Pain (Mild 1-3)/fever Last Admin: 02/21/18 19:53 Dose: 650 mg Albuterol (Ventolin Hfa) 0 gm INH Q4H PRN PRN Reason: Shortness of Breath Albuterol/Ipratropium (Duoneb 3.0-0.5 Mg/3 Ml) 3 ml NEB QIDRT [facility] Last Admin: 02/24/18 11:43 Dose: 3 ml Albuterol/Ipratropium (Duoneb 3.0-0.5 Mg/3 Ml) 3 ml NEB Q4H PRN PRN Reason: Dyspnea Last Admin: 02/21/18 18:34 Dose: 3 ml Amlodipine Besylate (Norvasc) 10 mg PO DAILY [facility] Last Admin: 02/24/18 07:58 Dose: 10 mg Aspirin (Aspirin) 81 mg PO DAILY [facility] Last Admin: 02/24/18 07:57 Dose: 81 mg Atorvastatin Calcium (Lipitor) 10 mg PO DAILY [facility] Last Admin: 02/24/18 07:57 Dose: 10 mg Clopidogrel Bisulfate (Plavix) 75 mg PO DAILY [facility] Last Admin: 02/24/18 07:58 Dose: 75 mg Donepezil HCl (Aricept) 10 mg PO DAILY [facility] Last Admin: 02/24/18 07:58 Dose: 10 mg Doxazosin Mesylate (Cardura) 8 mg PO BID [facility] Last Admin: 02/24/18 07:58 Dose: 8 mg Enoxaparin Sodium (Lovenox) 30 mg SUBCUT DAILY [facility] Last Admin: 02/24/18 07:57 Dose: 30 mg Ferrous Sulfate (Ferrous Sulfate) 324 mg PO DAILY [facility] Last Admin: 02/24/18 07:58 Dose: 324 mg Furosemide (Lasix) 20 mg IVPUSH Q24H [facility] Last Admin: 02/24/18 07:58 Dose: 20 mg Hydralazine HCl (Apresoline) 100 mg PO TID [facility] Last Admin: 02/24/18 14:45 Dose: 100 mg Piperacillin Sod/Tazobactam (Sod 3.375 gm/ Sodium Chloride) 50 mls @ 100 mls/ hr IV Q6H [facility] Last Admin: 02/24/18 11:48 Dose: 100 mls/hr Ibuprofen (Motrin) 400 mg PO Q8H PRN PRN Reason: Fever Last Admin: 02/21/18 17:30 Dose: 400 mg Insulin Aspart (Novolog) 0 - 10 unit SUBCUT TIDMEALS [facility]; Protocol Last Admin: 02/24/18 11:43 Dose: 6 units Insulin Detemir (Levemir) 5 unit SUBCUT QPM [facility] Last Admin: 02/23/18 20:58 Dose: 5 units Magnesium Hydroxide (Milk Of Magnesia) 30 ml PO BID PRN PRN Reason: Constipation Methylprednisolone Sodium Succinate (Solu-Medrol) 62.5 mg IVPUSH Q12H [facility] Last Admin: 02/24/18 07:58 Dose: 62.5 mg Multivitamins/Minerals/Vitamin C (Tab-A-Anand) 1 tab PO BID [facility] Last Admin: 02/24/18 07:58 Dose: 1 tab Onglyza 2.5 Mg (Tablets Own Med) 0 mg PO BID [facility] Last Admin: 02/24/18 07:59 Dose: 1 mg Promethazine HCl/Codeine (Phenergan With Codeine) 5 - 10 ml PO Q6H PRN PRN Reason: Cough Senna (Senna) 8.6 mg PO BID [facility] Last Admin: 02/24/18 08:09 Dose: Not Given Sertraline HCl (Zoloft) 50 mg PO DAILY [facility] Last Admin: 02/24/18 07:58 Dose: 50 mg Discontinued Medications Ceftriaxone Sodium (Rocephin) 1 gm IVPUSH DAILY [facility] Last Admin: 02/22/18 08:01 Dose: 1 gm Furosemide (Lasix) 20 mg PO DAILY PRN PRN Reason: Other Last Admin: 02/20/18 08:44 Dose: 20 mg Furosemide (Lasix) 40 mg IVPUSH ONETIME ONE Stop: 02/21/18 09:47 Last Admin: 02/21/18 10:17 Dose: 40 mg Furosemide (Lasix) 20 mg PO DAILY [facility] Last Admin: 02/22/18 14:16 Dose: 20 mg Sodium Chloride (Normal Saline) 1,000 mls @ 100 mls/hr IV ASDIRECTED [facility] Last Admin: 02/21/18 06:18 Dose: 100 mls/hr Azithromycin 500 mg/ Sodium (Chloride) 250 mls @ 250 mls/hr IV Q24H [facility] Last Admin: 02/20/18 17:19 Dose: 250 mls/hr Azithromycin 500 mg/ Sodium (Chloride) 250 mls @ 250 mls/hr IV DAILY@1600 [facility] Last Admin: 02/21/18 15:53 Dose: 250 mls/hr Vancomycin HCl 1 gm/ Sodium (Chloride) 250 mls @ 167 mls/hr IV Q24H [facility] Last Admin: 02/22/18 14:07 Dose: Not Given Vancomycin HCl 1 gm/ Sodium (Chloride) 250 mls @ 167 mls/hr IV Q24H [facility] Last Admin: 02/22/18 14:16 Dose: 167 mls/hr Iopamidol (Isovue-370 (76%)) 100 ml IVPUSH ONETIME ONE Stop: 02/22/18 13:25 Last Admin: 02/22/18 14:19 Dose: 100 ml Methylprednisolone Sodium Succinate (Solu-Medrol) 62.5 mg IVPUSH Q24H [facility] Last Admin: 02/22/18 11:35 Dose: 62.5 mg Methylprednisolone Sodium Succinate (Solu-Medrol) Confirm Administered Dose 125 mg .ROUTE .STK-MED ONE Stop: 02/22/18 11:32 Last Admin: 02/22/18 11:42 Dose: Not Given Sertraline 50 Mg (Tablets Own Med) 0 mg PO DAILY [facility] Last Admin: 02/20/18 17:21 Dose: Not Given Sertraline 50 Mg (Tablets Own Med) 0 mg PO BEDTIME [facility] Last Admin: 02/20/18 20:10 Dose: 50 mg Piperacillin Sod/Tazobactam Sod (Zosyn) Confirm Administered Dose 3.375 gm .ROUTE .STK-MED ONE Stop: 02/22/18 11:52 Last Admin: 02/22/18 12:02 Dose: Not Given Piperacillin Sod/Tazobactam Sod (Zosyn) Confirm Administered Dose 3.375 gm .ROUTE .STK-MED ONE Stop: 02/22/18 11:48 Last Admin: 02/22/18 12:01 Dose: Not Given Vancomycin HCl (Pharmacy To Dose - Vancomycin) 1 dose .XX ASDIRECTED [facility] - Exam Quality Assessment: Supplemental Oxygen General: Alert, Oriented HEENT: Mucous Membr. Moist/[place] Neck: Supple Lungs: Crackles, Wheezing Cardiovascular: Regular Rate, Regular Rhythm GI/Abdominal Exam: Normal Bowel Sounds, Soft, Non-Tender Extremities: Normal Inspection, No Pedal Edema Skin: Warm, Dry Neurological: No New Focal Deficit - Problem List & Annotations (1) Acute renal insufficiency SNOMED Code(s): 295956219 Code(s): N28.9 - DISORDER OF KIDNEY AND URETER, UNSPECIFIED Status: Acute Priority: High Current Visit: Yes (2) Hypoxia SNOMED Code(s): 886405130 Code(s): R09.02 - HYPOXEMIA Status: Acute Priority: High Current Visit : Yes (3) Pleural effusion SNOMED Code(s): 91356189 Code(s): J90 - PLEURAL EFFUSION, NOT ELSEWHERE CLASSIFIED Status: Acute Priority: High Current Visit: Yes (4) UTI (urinary tract infection) SNOMED Code(s): 98923018 Code(s): N39.0 - URINARY TRACT INFECTION, SITE NOT SPECIFIED Status: Acute Priority: High Current Visit: Yes Qualifiers: Urinary tract infection type: site unspecified Hematuria presence: without hematuria Qualified Code(s): N39.0 - Urinary tract infection, site not specified (5) Pneumonia SNOMED Code(s): 157144423 Code(s): J18.9 - PNEUMONIA, UNSPECIFIED ORGANISM Status: Acute Current Visit: No Qualifiers: Pneumonia type: due to unspecified organism Laterality: right Lung location: lower lobe of lung Qualified Code(s): J18.1 - Lobar pneumonia, unspecified organism - Problem List Review Problem List Initiated/Reviewed/Updated: Yes - My Orders Last 24 Hours: My Active Orders 02/25/18 05:11 Chest 2V [CR] AM PRO B-TYPE NATRIUR PEPT,BNPPRO [CHEM] Routine - Assessment Assessment:: Bilateral Pleural Effusion Pneumonia Hypoxia - Plan Plan:: Pneumonia with hypoxia Influenza negative. Repeat CXR 02/21/2018 revealed increasing pleural effusion, but improvement in right atelectasis. WBC down to 4.2 today from 10.2 on admission. CRP trending down, 7.8 today. Continue IV antibiotics, steroids, and nebulizers. Cough medicine PRN. Blood cultures remain negative to date. D-Dimer elevated to 2.33. Chest CTA negative for PE or infiltrate. Wean O2 as able to keep O2 sats > 92%. Pleural Effusion ProBNP elevated at 1487. Chest CTA reveals bilateral moderate pleural effusions and basilar atelectasis as well as scattered areas of ground glass change seen throughout the lungs. Radiologist feels this is edema rather than infectious or inflammatory process. Will diuresis with lasix 20 mg IV. Daily weights. Monitor I & O. Creatinine 1.5 today. Type II DM Blood sugars adequately controlled on home dosing of Levemir. Continue QID AC. Encourage ambulation/activity. UTI Final UC shows citrobacter farmeri with resistance to Rocephin. Continue IV Zosyn. Acute Renal Insufficiency Creatinine 1.5. Continue to monitor. Daily labs. Hypertension Continue current home medications. 02-24-2018 Patient states is feeling better today. Less short of breath than she has been. She had a CTA of the chest yesterday that showed bilateral pleural effusions, no PE. ProBNP was 1487. Creatinine 1.3. No evidence of infiltrate per radiology. Was given a dose of IV Lasix. Patient had been treated for pneumonia 6 weeks ago and does feel like she had recovered from that for the most part in regards to her breathing but hadn't gained all her stamina back yet. She does continue to cough and have wheezing that is still notable to her at times but overall better. She does continue to require oxygen. Ambulated yesterday and oxygen sats did drop to 87% on room air. Will recheck Chest xray tomorrow to determine if pleural effusions are improving. Dr. Cassidy did discuss a thoracentesis in the future if the effusion does not improve. Will repeat labs in am. Encourage ambulation. Continue current IV Zosyn. Reevaluate discharge potential in am.
[2018-02-24] MEDS: Insulin Detemir 100 Units/ML 3 ML Pen SUBCUT SCH (19:58)
[2018-02-25] MEDS: Piperacillin/Tazobactam 3.375 GM in Sodium Chloride 0.9% 50 ML IV SCH ×4 (04:42→22:45)
[2018-02-25] MEDS: atorvaSTATin 10 MG Tab PO SCH (07:42)
[2018-02-25] MEDS: Sennosides 8.6 MG Tab PO SCH ×2 (07:42→19:29)
[2018-02-25] MEDS: Clopidogrel 75 MG Tab PO SCH (07:42)
[2018-02-25] MEDS: Multivitamin Tab PO SCH ×2 (07:42→19:29)
[2018-02-25] MEDS: Aspirin 81 MG Tab.Chew PO SCH (07:42)
[2018-02-25] MEDS: Enoxaparin 30 MG/0.3 ML Syringe SUBCUT SCH (07:43)
[2018-02-25] MEDS: Ferrous Sulfate 324 MG Tab.EC PO SCH (07:43)
[2018-02-25] MEDS: Acetaminophen 325 MG Tab PO PRN (07:43)
[2018-02-25] MEDS: Doxazosin 2 MG Tab PO SCH ×2 (07:44→19:29)
[2018-02-25] MEDS: amLODIPine 10 MG Tab PO SCH (07:44)
[2018-02-25] MEDS: Sertraline 25 MG Tab PO SCH (07:44)
[2018-02-25] MEDS: Donepezil 5 MG Tab PO SCH (07:45)
[2018-02-25] MEDS: Furosemide 20 MG/2 ML VIAL IVPUSH SCH (07:45)
[2018-02-25] MEDS: Albuterol/Ipratropium 3.0-0.5 MG/3 ML Neb Soln NEB SCH ×4 (07:45→19:29)
[2018-02-25] MEDS: hydrALAZINE 25 MG Tab PO SCH ×3 (07:45→19:29)
[2018-02-25] MEDS: Insulin Aspart 100 Units/ML 3 ML Pen SUBCUT SCH ×4 (07:48→22:45)
[2018-02-25] MEDS: ONGLYZA 2.5 MG PO SCH ×2 (07:49→19:30)
[2018-02-25] MEDS: methylPREDNISolone Sodium Succinate 125 MG/2 ML SDV IVPUSH SCH ×2 (07:50→19:29)
--- NOTE | 2018-02-25 09:31 | PCM.PN ---
- General Info Date of Service: 02/25/18 Admission Dx/Problem (Free Text): Bronchitis Hypoxia Type II DM UTI Subjective Update: Patient reports she is feeling much better today. She feels like her breathing has improved. She does still have some shortness of breath at rest, but she feels like it has improved. She reports she slept well last night. Coughing has lessened and become nonproductive. She has been using cough drops. She has been afebrile. VSS on 2 L O2. Labs stable. Hgb 9.5 today. Reports her appetite has improved. She also reports she feels like she has more energy. Functional Status: Reports: Pain Controlled, Tolerating Diet, Ambulating - Review of Systems General: Reports: Fatigue. Denies: Fever, Weakness, Malaise HEENT: Reports: No Symptoms Pulmonary: Reports: Shortness of Breath, Cough, Wheezing. Denies: Sputum Cardiovascular: Denies: Chest Pain, Edema, Lightheadedness Gastrointestinal: Denies: Abdominal Pain, Nausea, Vomiting Genitourinary: Reports: No Symptoms Musculoskeletal: Reports: No Symptoms Skin: Reports: No Symptoms Neurological: Reports: No Symptoms - Patient Data Vitals - Most Recent: Last Vital Signs Temp 97.2 F 02/25/18 04:00 Pulse 76 02/25/18 04:00 Resp 18 02/25/18 04:00 BP 147/48 H 02/25/18 07:45 Pulse Ox 96 02/25/18 04:00 Weight - Most Recent: 161 lb 6.4 oz I&O - Last 24 Hours: Intake & Output 02/24/18 02/25/18 02/25/18 22:59 06:59 14:59 Intake Total 800 100 Output Total 350 300 Balance 450 -200 Lab Results Last 24 Hours: Laboratory Results - last 24 hr 02/23/18 02/24/18 02/24/18 Range/Units 20:15 11:40 17:08 WBC (5.0-10.0) 10^3/uL RBC (4.00-5.50) 10^6/uL Hgb (12.0-16.0) g/dL Hct (37.0-47.0) % MCV (82.0-94.0) fL MCH (27.0-32.0) pg MCHC (33.0-38.0) g/dL RDW Coeff of Charles (11.0-15.0) % Plt Count (150-400) 10^3/uL MPV fL Sodium (136-145) mEq/L Potassium (3.5-5.0) mEq/L Chloride (98-106) mEq/L Carbon Dioxide (21-32) mmol/L BUN (7-18) mg/dL Creatinine (0.6-1.0) mg/dL Est Cr Clr Drug Dosing mL/min Estimated GFR (MDRD) (>=60) mL/min Glucose (75-99) mg/dL POC Glucose 325 H 278 H 332 H (75-105) mg/dl Calcium (8.4-10.1) mg/dL C-Reactive Protein (0.2-0.8) mg/dL NT-Pro-B Natriuret Pep (0-1000) pg/mL 02/24/18 02/25/18 02/25/18 Range/Units 20:09 07:11 07:11 WBC 5.6 (5.0-10.0) 10^3/uL RBC 2.95 L (4.00-5.50) 10^6/uL Hgb 8.8 L (12.0-16.0) g/dL Hct 27.9 L (37.0-47.0) % MCV 94.6 H (82.0-94.0) fL MCH 29.8 (27.0-32.0) pg MCHC 31.5 L (33.0-38.0) g/dL RDW Coeff of Charles 15.7 H (11.0-15.0) % Plt Count 163 (150-400) 10^3/uL MPV 9.8 fL Sodium 140 (136-145) mEq/L Potassium 4.3 (3.5-5.0) mEq/L Chloride 107 H (98-106) mEq/L Carbon Dioxide 24 (21-32) mmol/L BUN 45 H (7-18) mg/dL Creatinine 1.8 H (0.6-1.0) mg/dL Est Cr Clr Drug Dosing 18.30 mL/min Estimated GFR (MDRD) 26 L (>=60) mL/min Glucose 351 H* (75-99) mg/dL POC Glucose 333 H (75-105) mg/dl Calcium 8.3 L (8.4-10.1) mg/dL C-Reactive Protein 2.8 H (0.2-0.8) mg/dL NT-Pro-B Natriuret Pep (0-1000) pg/mL 02/25/18 02/25/18 Range/Units 07:11 07:37 WBC (5.0-10.0) 10^3/uL RBC (4.00-5.50) 10^6/uL Hgb (12.0-16.0) g/dL Hct (37.0-47.0) % MCV (82.0-94.0) fL MCH (27.0-32.0) pg MCHC (33.0-38.0) g/dL RDW Coeff of Charles (11.0-15.0) % Plt Count (150-400) 10^3/uL MPV fL Sodium (136-145) mEq/L Potassium (3.5-5.0) mEq/L Chloride (98-106) mEq/L Carbon Dioxide (21-32) mmol/L BUN (7-18) mg/dL Creatinine (0.6-1.0) mg/dL Est Cr Clr Drug Dosing mL/min Estimated GFR (MDRD) (>=60) mL/min Glucose (75-99) mg/dL POC Glucose 318 H (75-105) mg/dl Calcium (8.4-10.1) mg/dL C-Reactive Protein (0.2-0.8) mg/dL NT-Pro-B Natriuret Pep 3762 H (0-1000) pg/mL [place] Results Last 24 Hours: Microbiology 02/20/18 14:15 Aerobic Blood Culture - Preliminary Blood - Venous - Lab Draw NO GROWTH AFTER 4 DAYS Anaerobic Blood Culture - Preliminary NO GROWTH AFTER 4 DAYS 02/20/18 14:05 Aerobic Blood Culture - Preliminary Blood - Venous NO GROWTH AFTER 4 DAYS Anaerobic Blood Culture - Preliminary NO GROWTH AFTER 4 DAYS Med Orders - Current: Current Medications Acetaminophen (Tylenol) 650 mg PO Q4H PRN PRN Reason: Pain (Mild 1-3)/fever Last Admin: 02/25/18 07:43 Dose: 650 mg Albuterol (Ventolin Hfa) 0 gm INH Q4H PRN PRN Reason: Shortness of Breath Albuterol/Ipratropium (Duoneb 3.0-0.5 Mg/3 Ml) 3 ml NEB QIDRT [facility] Last Admin: 02/25/18 07:45 Dose: 3 ml Albuterol/Ipratropium (Duoneb 3.0-0.5 Mg/3 Ml) 3 ml NEB Q4H PRN PRN Reason: Dyspnea Last Admin: 02/21/18 18:34 Dose: 3 ml Amlodipine Besylate (Norvasc) 10 mg PO DAILY [facility] Last Admin: 02/25/18 07:44 Dose: 10 mg Aspirin (Aspirin) 81 mg PO DAILY [facility] Last Admin: 02/25/18 07:42 Dose: 81 mg Atorvastatin Calcium (Lipitor) 10 mg PO DAILY [facility] Last Admin: 02/25/18 07:42 Dose: 10 mg Clopidogrel Bisulfate (Plavix) 75 mg PO DAILY [facility] Last Admin: 02/25/18 07:42 Dose: 75 mg Donepezil HCl (Aricept) 10 mg PO DAILY [facility] Last Admin: 02/25/18 07:45 Dose: 10 mg Doxazosin Mesylate (Cardura) 8 mg PO BID [facility] Last Admin: 02/25/18 07:44 Dose: 8 mg Enoxaparin Sodium (Lovenox) 30 mg SUBCUT DAILY [facility] Last Admin: 02/25/18 07:43 Dose: 30 mg Ferrous Sulfate (Ferrous Sulfate) 324 mg PO DAILY [facility] Last Admin: 02/25/18 07:43 Dose: 324 mg Furosemide (Lasix) 20 mg IVPUSH Q24H [facility] Last Admin: 02/25/18 07:45 Dose: 20 mg Furosemide (Lasix) 40 mg IVPUSH BID [facility] Hydralazine HCl (Apresoline) 100 mg PO TID [facility] Last Admin: 02/25/18 07:45 Dose: 100 mg Piperacillin Sod/Tazobactam (Sod 3.375 gm/ Sodium Chloride) 50 mls @ 100 mls/ hr IV Q6H [facility] Last Admin: 02/25/18 04:42 Dose: 100 mls/hr Ibuprofen (Motrin) 400 mg PO Q8H PRN PRN Reason: Fever Last Admin: 02/21/18 17:30 Dose: 400 mg Insulin Aspart (Novolog) 0 - 10 unit SUBCUT TIDMEALS [facility]; Protocol Last Admin: 02/25/18 07:48 Dose: 8 units Insulin Detemir (Levemir) 5 unit SUBCUT QPM [facility] Last Admin: 02/24/18 19:58 Dose: 5 units Magnesium Hydroxide (Milk Of Magnesia) 30 ml PO BID PRN PRN Reason: Constipation Methylprednisolone Sodium Succinate (Solu-Medrol) 62.5 mg IVPUSH Q12H [facility] Last Admin: 02/25/18 07:50 Dose: 62.5 mg Multivitamins/Minerals/Vitamin C (Tab-A-Anand) 1 tab PO BID [facility] Last Admin: 02/25/18 07:42 Dose: 1 tab Onglyza 2.5 Mg (Tablets Own Med) 0 mg PO BID [facility] Last Admin: 02/25/18 07:49 Dose: 2.5 mg Promethazine HCl/Codeine (Phenergan With Codeine) 5 - 10 ml PO Q6H PRN PRN Reason: Cough Senna (Senna) 8.6 mg PO BID [facility] Last Admin: 02/25/18 07:42 Dose: 8.6 mg Sertraline HCl (Zoloft) 50 mg PO DAILY [facility] Last Admin: 02/25/18 07:44 Dose: 50 mg Discontinued Medications Ceftriaxone Sodium (Rocephin) 1 gm IVPUSH DAILY [facility] Last Admin: 02/22/18 08:01 Dose: 1 gm Furosemide (Lasix) 20 mg PO DAILY PRN PRN Reason: Other Last Admin: 02/20/18 08:44 Dose: 20 mg Furosemide (Lasix) 40 mg IVPUSH ONETIME ONE Stop: 02/21/18 09:47 Last Admin: 02/21/18 10:17 Dose: 40 mg Furosemide (Lasix) 20 mg PO DAILY [facility] Last Admin: 02/22/18 14:16 Dose: 20 mg Sodium Chloride (Normal Saline) 1,000 mls @ 100 mls/hr IV ASDIRECTED [facility] Last Admin: 02/21/18 06:18 Dose: 100 mls/hr Azithromycin 500 mg/ Sodium (Chloride) 250 mls @ 250 mls/hr IV Q24H [facility] Last Admin: 02/20/18 17:19 Dose: 250 mls/hr Azithromycin 500 mg/ Sodium (Chloride) 250 mls @ 250 mls/hr IV DAILY@1600 [facility] Last Admin: 02/21/18 15:53 Dose: 250 mls/hr Vancomycin HCl 1 gm/ Sodium (Chloride) 250 mls @ 167 mls/hr IV Q24H [facility] Last Admin: 02/22/18 14:07 Dose: Not Given Vancomycin HCl 1 gm/ Sodium (Chloride) 250 mls @ 167 mls/hr IV Q24H [facility] Last Admin: 02/22/18 14:16 Dose: 167 mls/hr Iopamidol (Isovue-370 (76%)) 100 ml IVPUSH ONETIME ONE Stop: 02/22/18 13:25 Last Admin: 02/22/18 14:19 Dose: 100 ml Methylprednisolone Sodium Succinate (Solu-Medrol) 62.5 mg IVPUSH Q24H [facility] Last Admin: 02/22/18 11:35 Dose: 62.5 mg Methylprednisolone Sodium Succinate (Solu-Medrol) Confirm Administered Dose 125 mg .ROUTE .STK-MED ONE Stop: 02/22/18 11:32 Last Admin: 02/22/18 11:42 Dose: Not Given Sertraline 50 Mg (Tablets Own Med) 0 mg PO DAILY [facility] Last Admin: 02/20/18 17:21 Dose: Not Given Sertraline 50 Mg (Tablets Own Med) 0 mg PO BEDTIME [facility] Last Admin: 02/20/18 20:10 Dose: 50 mg Piperacillin Sod/Tazobactam Sod (Zosyn) Confirm Administered Dose 3.375 gm .ROUTE .STK-MED ONE Stop: 02/22/18 11:52 Last Admin: 02/22/18 12:02 Dose: Not Given Piperacillin Sod/Tazobactam Sod (Zosyn) Confirm Administered Dose 3.375 gm .ROUTE .STK-MED ONE Stop: 02/22/18 11:48 Last Admin: 02/22/18 12:01 Dose: Not Given Vancomycin HCl (Pharmacy To Dose - Vancomycin) 1 dose .XX ASDIRECTED IJEOMA - Exam Quality Assessment: Supplemental Oxygen General: Alert, Oriented HEENT: Mucous Membr. Moist/[employer] Neck: Supple Lungs: Crackles, Wheezing Cardiovascular: Regular Rate, Regular Rhythm GI/Abdominal Exam: Normal Bowel Sounds, Soft, Non-Tender Back Exam: Normal Inspection Extremities: Normal Inspection, No Pedal Edema Skin: Warm, Dry Neurological: No New Focal Deficit - Problem List & Annotations (1) Acute renal insufficiency SNOMED Code(s): 499160636 Code(s): N28.9 - DISORDER OF KIDNEY AND URETER, UNSPECIFIED Status: Acute Priority: High Current Visit: Yes (2) Hypoxia SNOMED Code(s): 998825156 Code(s): R09.02 - HYPOXEMIA Status: Acute Priority: High Current Visit : Yes (3) Pleural effusion SNOMED Code(s): 15832385 Code(s): J90 - PLEURAL EFFUSION, NOT ELSEWHERE CLASSIFIED Status: Acute Priority: High Current Visit: Yes (4) UTI (urinary tract infection) SNOMED Code(s): 36520284 Code(s): N39.0 - URINARY TRACT INFECTION, SITE NOT SPECIFIED Status: Acute Priority: High Current Visit: Yes Qualifiers: Urinary tract infection type: site unspecified Hematuria presence: without hematuria Qualified Code(s): N39.0 - Urinary tract infection, site not specified (5) Pneumonia SNOMED Code(s): 815320303 Code(s): J18.9 - PNEUMONIA, UNSPECIFIED ORGANISM Status: Acute Current Visit: No Qualifiers: Pneumonia type: due to unspecified organism Laterality: right Lung location: lower lobe of lung Qualified Code(s): J18.1 - Lobar pneumonia, unspecified organism - Problem List Review Problem List Initiated/Reviewed/Updated: Yes - My Orders Last 24 Hours: My Active Orders 02/25/18 05:11 Chest 2V [CR] AM 02/25/18 09:30 Furosemide [Lasix] 40 mg IVPUSH BID - Assessment Assessment:: Bilateral Pleural Effusion Pneumonia Hypoxia - Plan Plan:: Pneumonia with hypoxia Influenza negative. Repeat CXR 02/21/2018 revealed increasing pleural effusion, but improvement in right atelectasis. WBC down to 4.2 today from 10.2 on admission. CRP trending down, 7.8 today. Continue IV antibiotics, steroids, and nebulizers. Cough medicine PRN. Blood cultures remain negative to date. D-Dimer elevated to 2.33. Chest CTA negative for PE or infiltrate. Wean O2 as able to keep O2 sats > 92%. Pleural Effusion ProBNP elevated at 1487. Chest CTA reveals bilateral moderate pleural effusions and basilar atelectasis as well as scattered areas of ground glass change seen throughout the lungs. Radiologist feels this is edema rather than infectious or inflammatory process. Will diuresis with lasix 20 mg IV. Daily weights. Monitor I & O. Creatinine 1.5 today. Type II DM Blood sugars adequately controlled on home dosing of Levemir. Continue QID AC. Encourage ambulation/activity. UTI Final UC shows citrobacter farmeri with resistance to Rocephin. Continue IV Zosyn. Acute Renal Insufficiency Creatinine 1.5. Continue to monitor. Daily labs. Hypertension Continue current home medications. 02-24-2018 Patient states is feeling better today. Less short of breath than she has been. She had a CTA of the chest yesterday that showed bilateral pleural effusions, no PE. ProBNP was 1487. Creatinine 1.3. No evidence of infiltrate per radiology. Was given a dose of IV Lasix. Patient had been treated for pneumonia 6 weeks ago and does feel like she had recovered from that for the most part in regards to her breathing but hadn't gained all her stamina back yet. She does continue to cough and have wheezing that is still notable to her at times but overall better. She does continue to require oxygen. Ambulated yesterday and oxygen sats did drop to 87% on room air. Will recheck Chest xray tomorrow to determine if pleural effusions are improving. Dr. Cassidy did discuss a thoracentesis in the future if the effusion does not improve. Will repeat labs in am. Encourage ambulation. Continue current IV Zosyn. Reevaluate discharge potential in am. 02-25-2018 Patient feeling good. Was up and ambulating around yesterday and felt she tolerated this well. Oxygen sats did drop down to 87% on room air so have been unable to wean off of oxygen. Does still have a nonproductive cough. Chest xray done today does show an increase in pleural effusion. ProBNP up to 3762. CRP improved to 2.8. Blood sugars still running high, on daily Levemir. Other labs are stable. Encourage ambulation. Start IV Lasix 40 mg BID. Continue to try to wean off oxygen. Inappropriate for discharge due to changes. Reevaluate in am.
[2018-02-25] MEDS: Furosemide 40 MG/4 ML VIAL IVPUSH SCH ×2 (10:24→16:23)
[2018-02-25] MEDS: Insulin Detemir 100 Units/ML 3 ML Pen SUBCUT SCH (19:30)
[2018-02-26] MEDS: Piperacillin/Tazobactam 3.375 GM in Sodium Chloride 0.9% 50 ML IV SCH (05:39)
[2018-02-26 07:39] VITALS: BP 159/49
[2018-02-26] MEDS: Furosemide 40 MG/4 ML VIAL IVPUSH SCH (07:40)
[2018-02-26] MEDS: methylPREDNISolone Sodium Succinate 125 MG/2 ML SDV IVPUSH SCH (07:40)
[2018-02-26] MEDS: Ferrous Sulfate 324 MG Tab.EC PO SCH (07:41)
[2018-02-26] MEDS: Enoxaparin 30 MG/0.3 ML Syringe SUBCUT SCH (07:41)
[2018-02-26] MEDS: Albuterol/Ipratropium 3.0-0.5 MG/3 ML Neb Soln NEB SCH (07:42)
[2018-02-26] MEDS: atorvaSTATin 10 MG Tab PO SCH (07:42)
[2018-02-26] MEDS: Aspirin 81 MG Tab.Chew PO SCH (07:42)
[2018-02-26] MEDS: Clopidogrel 75 MG Tab PO SCH (07:42)
[2018-02-26] MEDS: amLODIPine 10 MG Tab PO SCH (07:42)
[2018-02-26] MEDS: Multivitamin Tab PO SCH (07:43)
[2018-02-26] MEDS: Sennosides 8.6 MG Tab PO SCH (07:43)
[2018-02-26] MEDS: hydrALAZINE 25 MG Tab PO SCH (07:43)
[2018-02-26] MEDS: Donepezil 5 MG Tab PO SCH (07:43)
[2018-02-26] MEDS: Sertraline 25 MG Tab PO SCH (07:43)
[2018-02-26] MEDS: Doxazosin 2 MG Tab PO SCH (07:43)
[2018-02-26] MEDS: ONGLYZA 2.5 MG PO SCH (07:45)
[2018-02-26] MEDS: Insulin Aspart 100 Units/ML 3 ML Pen SUBCUT SCH (07:52)
[2018-02-26] MEDS: Furosemide 20 MG/2 ML VIAL IVPUSH SCH (09:05)
--- NOTE | 2018-02-27 15:58 | PCM.DCSUM1 ---
Discharge Summary - Hospital Course Free Text/Narrative:: Patient presented to ER with complaints of shortness of breath. Is from [facility] and here visiting her daughter after being on a cruise in [place]. She have developed a sore throat which progressed to a cough the night prior to presentation. States developed the shakes and was concerned about a fever/pneumonia as she was hospitalized for the same about 6 weeks ago in [place]. She does feel that she had recovered from the pneumonia/sepsis but also was having issues with bradycardia at that time so was readmitted. On presentation, patient did have a WBC of 10.2. CRP 4.2. Electrolytes normal. Was hypoxia. Chest xray did not show a definitive pneumonia. Admitted and treated for bronchitis. Diagnosis: Stroke: No Modified Pitt Scale: No Symptoms at All Modified Pitt Scale Score: 0 - Discharge Data Discharge Date: 02/26/18 Discharge Disposition: Home, Self-Care 01 Condition: Good - Discharge Diagnosis/Problem(s) (1) Acute renal insufficiency SNOMED Code(s): 925779984 ICD Code: N28.9 - DISORDER OF KIDNEY AND URETER, UNSPECIFIED Status: Acute Priority: High (2) Hypoxia SNOMED Code(s): 659197883 ICD Code: R09.02 - HYPOXEMIA Status: Acute Priority: High (3) Pleural effusion SNOMED Code(s): 56408602 ICD Code: J90 - PLEURAL EFFUSION, NOT ELSEWHERE CLASSIFIED Status: Acute Priority: High (4) UTI (urinary tract infection) SNOMED Code(s): 28792395 ICD Code: N39.0 - URINARY TRACT INFECTION, SITE NOT SPECIFIED Status: Acute Priority: High Qualifiers: Urinary tract infection type: site unspecified Hematuria presence: without hematuria Qualified Code(s): N39.0 - Urinary tract infection, site not specified (5) Pneumonia SNOMED Code(s): 647550859 ICD Code: J18.9 - PNEUMONIA, UNSPECIFIED ORGANISM Status: Acute Qualifiers: Pneumonia type: due to unspecified organism Laterality: right Lung location: lower lobe of lung Qualified Code(s): J18.1 - Lobar pneumonia, unspecified organism - Patient Summary/Data Complications: none Hospital Course: Patient had slow improvement of overall respiratory status during admission. Was rehydrated on admit with IV fluids and started on Rocephin. UTI was noted, culture done that showed resistancy to Rocephin so medication was stopped and Rocephin added. Patient did continue to have hypoxia. Repeat chest xray over the weekend did show pleural effusion. ProBNP 1486 so IV Lasix 20 mg daily was added. Patient did not have much improvement with that. CTA done then as d- dimer was mildly elevated. NO PE. No pneumonia noted. [place] was edema in chest. ProBNP did increase to 3700. WBC and CRP remained stable. Ultimately, Lasix was increased to 40 mg BID IV and had better improvement of shortness of breath and oyxgen saturations. Finally able to wean off oxygen by discharge while maintaining sats at 93%. Patient is feeling much improved by discharge. Will need to follow up with PCP and have repeat CXR after returning back to [place]. - Patient Instructions Diet: Usual Diet as Tolerated Activity: As Tolerated - Discharge Plan Prescriptions/Med Rec: Amoxicillin/Potassium Clav [Augmentin 875-125 Tablet] 1 each PO BID #14 tablet Furosemide [Lasix] 40 mg PO DAILY #7 tablet Home Medications: Home Meds Aspirin 81 mg PO DAILY 09/12/16 [History] Clopidogrel [Plavix] 75 mg PO DAILY 09/12/16 [History] Ferrous Sulfate [Iron] 325 mg PO DAILY 09/12/16 [History] Multivitamin [Multivitamins] 1 each PO DAILY 09/12/16 [History] Saxagliptin HCl [Onglyza] 2.5 mg PO BID 09/12/16 [History] Sennosides [Senna] 8.6 mg PO BID 09/12/16 [History] Sertraline [Zoloft] 50 mg PO DAILY 09/12/16 [History] Vit C/E/Zn/Coppr/Lutein/Zeaxan [Preservision Areds 2 Softgel] 1 tab PO BID 09/12 [History] amLODIPine Besylate [Amlodipine Besylate] 10 mg PO DAILY 09/12/16 [History] atorvaSTATin Calcium [Atorvastatin Calcium] 10 mg PO DAILY 09/12/16 [History] hydrALAZINE HCl [Hydralazine HCl] 100 mg PO TID 09/12/16 [History] Albuterol Sulfate [Proair Respiclick] 90 mcg IH Q4H PRN 02/20/18 [History] Donepezil HCl 10 mg PO DAILY 02/20/18 [History] Doxazosin Mesylate [Cardura] 8 mg PO BID 02/20/18 [History] Insulin Detemir [Levemir] 5 unit SQ QPM 02/20/18 [History] Losartan [Cozaar] 100 mg PO DAILY 02/20/18 [History] Amoxicillin/Potassium Clav [Augmentin 875-125 Tablet] 1 each PO BID #14 tablet 02/26/18 [Rx] Furosemide [Lasix] 40 mg PO DAILY #7 tablet 02/26/18 [Rx] Patient Handouts: Acute Bronchitis, Adult Forms: ED Department Discharge Referrals: PCP,None [Primary Care Provider] - (Follow up with primary care provider in one week. ) - Discharge Summary/Plan Comment DC Time >30 min.: No Discharge Summary/Plan Comment: Discharge home on Augmentin 875 mg BID for 10 days Lasix 40 mg daily for 7 days See PCP in 7 days on return back home - General Info Date of Service: 02/26/18 Admission Dx/Problem (Free Text: Bronchitis Hypoxia Type II DM UTI Functional Status: Reports: Pain Controlled, Tolerating Diet, Ambulating - Review of Systems General: Reports: Fatigue. Denies: Fever, Weakness, Malaise HEENT: Reports: No Symptoms Pulmonary: Reports: Shortness of Breath, Cough Cardiovascular: Denies: Chest Pain, Edema, Lightheadedness Gastrointestinal: Denies: Abdominal Pain, Nausea, Vomiting Genitourinary: Reports: No Symptoms Musculoskeletal: Reports: No Symptoms Neurological: Reports: No Symptoms - Patient Data Vitals - Most Recent: Last Vital Signs Temp 98.6 F 02/26/18 07:38 Pulse 69 02/26/18 07:38 Resp 20 02/26/18 07:38 BP 159/49 H 02/26/18 07:43 Pulse Ox 95 02/26/18 07:38 Weight - Most Recent: 161 lb 6.4 oz Med Orders - Current: Current Medications Discontinued Medications Acetaminophen (Tylenol) 650 mg PO Q4H PRN PRN Reason: Pain (Mild 1-3)/fever Last Admin: 02/25/18 07:43 Dose: 650 mg Albuterol (Ventolin Hfa) 0 gm INH Q4H PRN PRN Reason: Shortness of Breath Albuterol/Ipratropium (Duoneb 3.0-0.5 Mg/3 Ml) 3 ml NEB QIDRT [facility] Last Admin: 02/26/18 07:42 Dose: 3 ml Albuterol/Ipratropium (Duoneb 3.0-0.5 Mg/3 Ml) 3 ml NEB Q4H PRN PRN Reason: Dyspnea Last Admin: 02/21/18 18:34 Dose: 3 ml Amlodipine Besylate (Norvasc) 10 mg PO DAILY [facility] Last Admin: 02/26/18 07:42 Dose: 10 mg Aspirin (Aspirin) 81 mg PO DAILY [facility] Last Admin: 02/26/18 07:42 Dose: 81 mg Atorvastatin Calcium (Lipitor) 10 mg PO DAILY [facility] Last Admin: 02/26/18 07:42 Dose: 10 mg Ceftriaxone Sodium (Rocephin) 1 gm IVPUSH DAILY [facility] Last Admin: 02/22/18 08:01 Dose: 1 gm Clopidogrel Bisulfate (Plavix) 75 mg PO DAILY [facility] Last Admin: 02/26/18 07:42 Dose: 75 mg Donepezil HCl (Aricept) 10 mg PO DAILY [facility] Last Admin: 02/26/18 07:43 Dose: 10 mg Doxazosin Mesylate (Cardura) 8 mg PO BID [facility] Last Admin: 02/26/18 07:43 Dose: 8 mg Enoxaparin Sodium (Lovenox) 30 mg SUBCUT DAILY [facility] Last Admin: 02/26/18 07:41 Dose: 30 mg Ferrous Sulfate (Ferrous Sulfate) 324 mg PO DAILY [facility] Last Admin: 02/26/18 07:41 Dose: 324 mg Furosemide (Lasix) 20 mg PO DAILY PRN PRN Reason: Other Last Admin: 02/20/18 08:44 Dose: 20 mg Furosemide (Lasix) 40 mg IVPUSH ONETIME ONE Stop: 02/21/18 09:47 Last Admin: 02/21/18 10:17 Dose: 40 mg Furosemide (Lasix) 20 mg PO DAILY [facility] Last Admin: 02/22/18 14:16 Dose: 20 mg Furosemide (Lasix) 20 mg IVPUSH Q24H [facility] Last Admin: 02/26/18 09:05 Dose: Not Given Furosemide (Lasix) 40 mg IVPUSH BID@0800,1600 [facility] Last Admin: 02/26/18 07:40 Dose: 40 mg Hydralazine HCl (Apresoline) 100 mg PO TID [facility] Last Admin: 02/26/18 07:43 Dose: 100 mg Sodium Chloride (Normal Saline) 1,000 mls @ 100 mls/hr IV ASDIRECTED [facility] Last Admin: 02/21/18 06:18 Dose: 100 mls/hr Azithromycin 500 mg/ Sodium (Chloride) 250 mls @ 250 mls/hr IV Q24H [facility] Last Admin: 02/20/18 17:19 Dose: 250 mls/hr Azithromycin 500 mg/ Sodium (Chloride) 250 mls @ 250 mls/hr IV DAILY@1600 [facility] Last Admin: 02/21/18 15:53 Dose: 250 mls/hr Piperacillin Sod/Tazobactam (Sod 3.375 gm/ Sodium Chloride) 50 mls @ 100 mls/ hr IV Q6H [facility] Last Admin: 02/26/18 05:39 Dose: 100 mls/hr Vancomycin HCl 1 gm/ Sodium (Chloride) 250 mls @ 167 mls/hr IV Q24H [facility] Last Admin: 02/22/18 14:07 Dose: Not Given Vancomycin HCl 1 gm/ Sodium (Chloride) 250 mls @ 167 mls/hr IV Q24H [facility] Last Admin: 02/22/18 14:16 Dose: 167 mls/hr Ibuprofen (Motrin) 400 mg PO Q8H PRN PRN Reason: Fever Last Admin: 02/21/18 17:30 Dose: 400 mg Insulin Aspart (Novolog) 0 - 10 unit SUBCUT TIDMEALS [facility]; Protocol Last Admin: 02/25/18 17:31 Dose: 8 units Insulin Aspart (Novolog) 0 - 10 unit SUBCUT QID [facility]; Protocol Last Admin: 02/26/18 07:52 Dose: 4 units Insulin Detemir (Levemir) 5 unit SUBCUT QPM [facility] Last Admin: 02/25/18 19:30 Dose: 5 units Iopamidol (Isovue-370 (76%)) 100 ml IVPUSH ONETIME ONE Stop: 02/22/18 13:25 Last Admin: 02/22/18 14:19 Dose: 100 ml Magnesium Hydroxide (Milk Of Magnesia) 30 ml PO BID PRN PRN Reason: Constipation Methylprednisolone Sodium Succinate (Solu-Medrol) 62.5 mg IVPUSH Q24H [facility] Last Admin: 02/22/18 11:35 Dose: 62.5 mg Methylprednisolone Sodium Succinate (Solu-Medrol) 62.5 mg IVPUSH Q12H [facility] Last Admin: 02/26/18 07:40 Dose: 62.5 mg Methylprednisolone Sodium Succinate (Solu-Medrol) Confirm Administered Dose 125 mg .ROUTE .STK-MED ONE Stop: 02/22/18 11:32 Last Admin: 02/22/18 11:42 Dose: Not Given Multivitamins/Minerals/Vitamin C (Tab-A-Anand) 1 tab PO BID [facility] Last Admin: 02/26/18 07:43 Dose: 1 tab Onglyza 2.5 Mg (Tablets Own Med) 0 mg PO BID [facility] Last Admin: 02/26/18 07:45 Dose: 2.5 mg Sertraline 50 Mg (Tablets Own Med) 0 mg PO DAILY [facility] Last Admin: 02/20/18 17:21 Dose: Not Given Sertraline 50 Mg (Tablets Own Med) 0 mg PO BEDTIME [facility] Last Admin: 02/20/18 20:10 Dose: 50 mg Piperacillin Sod/Tazobactam Sod (Zosyn) Confirm Administered Dose 3.375 gm .ROUTE .STK-MED ONE Stop: 02/22/18 11:52 Last Admin: 02/22/18 12:02 Dose: Not Given Piperacillin Sod/Tazobactam Sod (Zosyn) Confirm Administered Dose 3.375 gm .ROUTE .STK-MED ONE Stop: 02/22/18 11:48 Last Admin: 02/22/18 12:01 Dose: Not Given Promethazine HCl/Codeine (Phenergan With Codeine) 5 - 10 ml PO Q6H PRN PRN Reason: Cough Senna (Senna) 8.6 mg PO BID [facility] Last Admin: 02/26/18 07:43 Dose: 8.6 mg Sertraline HCl (Zoloft) 50 mg PO DAILY [facility] Last Admin: 02/26/18 07:43 Dose: 50 mg Vancomycin HCl (Pharmacy To Dose - Vancomycin) 1 dose .XX ASDIRECTED [facility] - Exam General: Reports: Alert, Oriented HEENT: Reports: Mucous Membr. Moist/[place] Neck: Reports: Supple Lungs: Reports: Crackles Cardiovascular: Reports: Regular Rate, Regular Rhythm GI/Abdominal Exam: Normal Bowel Sounds, Soft, Non-Tender Extremities: Normal Inspection, No Pedal Edema Skin: Reports: Warm, Dry Neurological: Reports: No New Focal Deficit
== END 2018-02-26 11:00 | disposition home or self-care (01) | DRG 194 ==
LOC: CC.ED 06:39 → CC.MS 07:36 → UNDOADMIN 07:58
PROVIDERS: ADMIT Physician Assistant Medical; ATTEND Family Medicine
DX: J18.9 Pneumonia, unspecified organism (principal); J90 Pleural effusion, not elsewhere classified; N39.0 Urinary tract infection, site not specified; J40 Bronchitis, not specified as acute or chronic; Z79.899 Other long term (current) drug therapy; N28.9 Disorder of kidney and ureter, unspecified; R09.02 Hypoxemia; E78.00 Pure hypercholesterolemia, unspecified; I10 Essential (primary) hypertension; E11.9 Type 2 diabetes mellitus without complications; B96.89 Other specified bacterial agents as the cause of diseases classified elsewhere; Z79.4 Long term (current) use of insulin; Z87.01 Personal history of pneumonia (recurrent); Z79.82 Long term (current) use of aspirin; Z85.038 Personal history of other malignant neoplasm of large intestine; Z92.21 Personal history of antineoplastic chemotherapy
CPT/HCPCS: 36415; 71046; 71275; 80048; 80053; 81001; 82550; 82962; 83615; 83880; 84484; 85025; 85027; 85379; 86140; 87040; 87086; 87088; 87186; 87804; 93005; 93010; 94640; 99285; A9270-GY; J0456; J0696; J1650; J1815-GY; J1940; J2543; J2930; J3370; J7030; J7050; Q9967